=== PATIENT | female | born 1965 | race Caucasian/White ===

== ENCOUNTER → 2016-10-10 | Outpatient (CLI) | payer MEDICARE, OTHER ==
--- NOTE | 2016-10-10 22:21 | MR ---
EXAMINATION TYPE: MR brain/lspine wo con DATE OF EXAM: 10/10/2016 6:00 PM COMPARISON: 04/04/2014 HISTORY: LBP, stroke, diff with speech, rt arm weakness CONTRAST: 0 mL intravenous MultiHance. TECHNIQUE: Multiplanar, multisequence images of the lumbar spine were acquired. FINDINGS: L5-S1: Moderately large left paracentral disc herniation is present. There is displacement and compr ession of the left S1 exiting nerve root. Correlate with radicular symptoms. No AP spinal canal steno sis is present. Findings are stable from 04/04/2014. Neural foramen are patent.. There is narrowing of the disc height at L5-S1. L4-L5: Broad-based disc bulge is present with anterior thecal sac compression. No AP spinal canal pardeep nosis is present. Mild facet hypertrophy is present. There is mild right foraminal narrowing. Left ne ural foramen is patent. Disc desiccation and narrowing of the disc height is present. Ligamentum flav um laxity is present. L3-L4: No significant disc bulge or disc herniation. No spinal canal stenosis. No foraminal stenosi s. Mild facet hypertrophy is present.. L2-L3: No significant disc bulge or disc herniation. No spinal canal stenosis. No foraminal stenosi s. Neural foramen are patent.. L1-L2: No significant disc bulge or disc herniation. No spinal canal stenosis. No foraminal stenosi s. Neural foramen are patent.. T12-L1: No significant disc bulge or disc herniation. No spinal canal stenosis. No foraminal stenos is. Neural foramen are patent.. IMPRESSION: 1. Left paracentral moderate to large disc herniation L5-S1 displacing the exiting left S1 nerve root . Correlate with radicular symptoms. This is stable from 04/04/2014. 2. Broad-based disc bulge L5 L4 L5 with anterior thecal sac compression. No spinal canal stenosis is present. 3. Loss of disc height L3-4-5 and L5-S1. Disc desiccation is present at these levels. 4. Findings appear stable from 04/04/2014. EXAMINATION TYPE: MR brain/lspine wo con DATE OF EXAM: 10/10/2016 6:00 PM COMPARISON: 08/13/2014 HISTORY: LBP, stroke, diff with speech, rt arm weakness CONTRAST: Performed utilizing 0 mL intravenous MultiHance gadolinium contrast. TECHNIQUE: Multiplanar, multiecho imaging on a 3.0 [place] magnet is performed through the brain. Stud y is performed within 24 hours of arrival to the hospital. The craniovertebral junction is normal. The pituitary is normal. Diffusion-weighted imaging is performed. No abnormal hyperintensity is present to suggest an acute i ntracranial infarct or acute ischemic change. There is atrophy within the left temporal region. Sulci are prominent. Subcortical white matter hyper intensity is present on T2 and inversion recovery weighted sequences. Some white matter changes may b e within the left cerebral peduncle. There are a few scattered small subcortical white matter changes present in the periventricular region greater on the left. Some cortical hyperintensities on inversi on recovery weighted sequences within the watershed region. Findings can be compatible with microvasc ular ischemic changes. Findings were present previously and hasn't matured from prior study. Ventricles and sulci are prominent for the patient age, predominantly on the left side likely relate d to ex vacuo effect. IMPRESSIONS: 1. Chronic ischemic changes left temporal parietal region. No acute intracranial process evident. Fin dings are stable from 08/13/2014.
== END | disposition home or self-care (01) ==
LOC: RADMRIMAIN 16:44
PROVIDERS: ATTEND Nurse Practitioner Acute Care
DX: M51.27 Other intervertebral disc displacement, lumbosacral region (principal); I67.82 Cerebral ischemia
CPT/HCPCS: 70551; 72148

== ENCOUNTER 2017-03-14 09:57 | Emergency (ER) | payer MEDICARE, OTHER ==
[2017-03-14 10:05] VITALS: BP 147/67; PULSE 56; RESP 20; TEMP 97.5
--- NOTE | 2017-03-14 10:25 | ED ---
Lower Extremity Injury HPI - General Chief Complaint: Extremity Injury, Lower Stated Complaint: fall, foot injury Time Seen by Provider: 03/14/17 10:13 Source: patient, RN notes reviewed Mode of arrival: ambulatory Limitations: physical limitation - History of Present Illness Initial Comments: 51-year-old female presents emergency Department chief complaint right foot ankle pain. Patient states that she is to his never leg states that her foot was asleep states that she stood up and fell. She states this happened on Monday and complains of no pain in her right foot and ankle. She states is swollen and states that it's not feeling better at this time. She is not seeing Fadi from his prior injury and has had no prior fractures or sprains. - Related Data Home Medications Medication Instructions Recorded Confirmed Gabapentin [Neurontin] 800 mg PO TID 12/17/13 03/14/17 HYDROcodone/APAP 7.5-325MG [[place] 1 tab PO BID PRN 12/17/13 03/14/17 7.5-325] INSULIN LISPRO (humaLOG) [humaLOG 4 units SQ AC-SUPPER 12/17/13 03/14/17 (formulary)] Insulin Detemir [Levemir] 15 unit SQ BID 12/17/13 03/14/17 Lisinopril [Zestril] 5 mg PO BID 12/17/13 03/14/17 Latanoprost Ophth [Xalatan 0.005%] 1 drops BOTH EYES HS 08/11/14 03/14/17 Sertraline [Zoloft] 100 mg PO DAILY 07/31/15 03/14/17 metFORMIN HCL 1,000 mg PO BID 07/31/15 03/14/17 Atorvastatin Calcium [Lipitor] 80 mg PO HS 03/14/17 03/14/17 Omeprazole 20 mg PO DAILY 03/14/17 03/14/17 Zolpidem [Ambien] 5 mg PO HS 03/14/17 03/14/17 Previous Rx's Medication Instructions Recorded Aspirin 325 mg PO DAILY #30 tab 08/03/15 Clopidogrel [Plavix] 75 mg PO DAILY #30 tab 08/03/15 Metoprolol Tartrate [Lopressor] 25 mg PO BID #60 tab 08/03/15 Allergies Allergy/AdvReac Type Severity Reaction Status Date / Time No Known Allergies Allergy Verified 03/14/17 10:36 Review of Systems ROS Statement: Those systems with pertinent positive or pertinent negative responses have been documented in the HPI. ROS Other: All systems not noted in ROS Statement are negative. Past Medical History Past Medical History: Coronary Artery Disease (CAD), Chest Pain / Angina, CVA/ TIA, Diabetes Mellitus, Eye Disorder, GERD/Reflux, Hyperlipidemia, Hypertension , Myocardial Infarction ([place]) Additional Past Medical History / Comment(s): , fibroelastoma of the aortic valve, DDD, GLAUCOMA bilaterally ,POVD,NEUROPATHY bilateral legs and feet. Last Myocardial Infarction Date:: 2011 History of Any Multi-Drug Resistant Organisms: None Reported Past Surgical History: Cholecystectomy, Heart Catheterization With Stent, Tubal Ligation Additional Past Surgical History / Comment(s): PTCA with stent LAD 11/20/11, NERI , ovarian cyst Past Anesthesia/Blood Transfusion Reactions: No Reported Reaction Date of Last Stent Placement:: 11-20-2011 Past Psychological History: Anxiety, Depression Smoking Status: Current every day smoker Past Alcohol Use History: None Reported Past Drug Use History: Marijuana - Past Family History Father History Unknown: Yes Family Medical History: Unable to Obtain Mother Family Medical History: Diabetes Mellitus, Myocardial Infarction ([place]) Additional Family Medical History / Comment(s): Mother at age 55 yrs of unknown cause. General Exam Limitations: physical limitation General appearance: alert, in no apparent distress Respiratory exam: Present: normal lung sounds bilaterally. Absent: respiratory distress, wheezes, rales, rhonchi, stridor Cardiovascular Exam: Present: regular rate, normal rhythm, normal heart sounds. Absent: systolic murmur, diastolic murmur, rubs, gallop, clicks Extremities exam: Present: other (Right ankle dorsal lateral malleolus, mild swelling, mild swelling of the right foot with tenderness lateral foot over the fourth and fifth metatarsal neurovascular intact with cap refill less than 2 seconds.) Skin exam: Present: warm, dry, intact, normal color. Absent: rash Course Vital Signs 03/14/17 10:03 Temperature 97.5 F L Pulse Rate 56 L Respiratory 20 Rate Blood Pressure 147/67 O2 Sat by Pulse 99 Oximetry Medical Decision Making - Medical Decision Making 51-year-old female presented for right foot and ankle pain. Patient has a right ankle foot sprain. Patient will be Leandro wrap and discharged. Facial follow-up orthopedics as needed. Disposition Clinical Impression: Right ankle sprain Disposition: HOME SELF-CARE Condition: Stable Instructions: Ankle Sprain (ED) Additional Instructions: Please return to the Emergency Department if symptoms worsen or any other concerns. Referrals: Daniel Bailey MD [Primary Care Provider] - 1-2 days Rai Jones DO [Doctor of Osteopathic Medicine] - 1-2 days Time of Disposition: 11:04
--- NOTE | 2017-03-14 10:53 | XR ---
Right foot and right ankle HISTORY: Trauma and pain 4 days prior 3 views of the right foot correlated to 3 views of the right ankle same date Bone mineralization, joint spaces and alignment are maintained with the exception of osteoarthritic c hange at the first metatarsophalangeal joint. There is a plantar calcaneal spur. Soft tissue swelling is noted. IMPRESSION: No fracture or dislocation is evident
== END 2017-03-14 11:08 | disposition home or self-care (01) ==
LOC: EC 09:57
DX: S93.401A Sprain of unspecified ligament of right ankle, initial encounter (principal); S93.601A Unspecified sprain of right foot, initial encounter; I25.10 Atherosclerotic heart disease of native coronary artery without angina pectoris; K21.9 Gastro-esophageal reflux disease without esophagitis; E78.5 Hyperlipidemia, unspecified; I25.2 Old myocardial infarction; I10 Essential (primary) hypertension; E11.40 Type 2 diabetes mellitus with diabetic neuropathy, unspecified; H40.9 Unspecified glaucoma; F41.9 Anxiety disorder, unspecified; F32.9 Major depressive disorder, single episode, unspecified; F17.200 Nicotine dependence, unspecified, uncomplicated; Z95.5 Presence of coronary angioplasty implant and graft; Z79.4 Long term (current) use of insulin; Z79.84 Long term (current) use of oral hypoglycemic drugs; Z79.899 Other long term (current) drug therapy; W19.XXXA Unspecified fall, initial encounter
CPT/HCPCS: 99283

== ENCOUNTER → 2017-09-04 | Outpatient (CLI) | payer MEDICARE, OTHER ==
[2017-09-04 13:52] LABS: Basophils # (A) 0.1 k/uL (0-0.2); Basophils % (A) 1 %; Eosinophils # (A) 0.2 k/uL (0-0.7); Eosinophils % (A) 3 %; HCT 36.9 % (34.0-46.0); HGB 12.1 gm/dL (11.4-16.0); Lymphocytes # (A) 2.3 k/uL (1.0-4.8); Lymphocytes % (A) 24 %; MCH 31.7 pg (25.0-35.0); MCHC 32.8 g/dL (31.0-37.0); MCV 96.5 fL (80.0-100.0); Mean Platelet Volume 7.8; Monocytes # (A) 0.5 k/uL (0-1.0); Monocytes % (A) 5 %; Neutrophils # (A) 6.3 k/uL (1.3-7.7); Neutrophils % (A) 66 %; Platelet Count 288 k/uL (150-450); RBC 3.83 m/uL (3.80-5.40); RDW 14.4 % (11.5-15.5); WBC 9.7 k/uL (3.8-10.6)
[2017-09-04 13:57] LABS: Appearance,Urine Clear (Clear); Bilirubin,Urine Negative (Negative); Blood,Urine Negative (Negative); Color,Urine Yellow; Glucose,Urine (UA) Negative (Negative); Ketones,Urine Negative (Negative); Leukocyte Esterase,Urine Negative (Negative); Nitrite,Urine Negative (Negative); PH, Urine 5.5 (5.0-8.0); Protein,Urine Negative (Negative); Urobilinogen,Urine <2.0 mg/dL (<2.0)
[2017-09-04 14:02] LABS: Anion Gap 11 mmol/L; Blood Urea Nitrogen 10 mg/dL (7-17); Carbon Dioxide 28 mmol/L (22-30); Chloride 100 mmol/L (98-107); Glucose 63 mg/dL (74-99); Potassium 4.9 mmol/L (3.5-5.1); Sodium 139 mmol/L (137-145)
== END | disposition home or self-care (01) ==
LOC: LABPAT 13:02
PROVIDERS: ATTEND Surgery
DX: Z01.812 Encounter for preprocedural laboratory examination (principal); I73.9 Peripheral vascular disease, unspecified
CPT/HCPCS: 36415; 80051; 81003; 82565; 82947; 84520; 85025

== ENCOUNTER 2017-09-06 05:42 | Inpatient (IN) | payer MEDICARE, OTHER ==
[2017-09-05 11:01] VITALS: BMI 26.5
[~2017-09-06 05:42] MED LIST: ceFAZolin IN SWFI 2 GM/20 ML SYRINGE IVP ONE
[2017-09-06] MEDS ORDERED: DEXAMETHASONE SOD PHOSPHATE 10 MG/ML 1 ML VIAL IV ONE (05:50)
[2017-09-06] MEDS ORDERED: LACTATED RINGERS 1,000 ML IV SCH (05:50)
[2017-09-06] MEDS ORDERED: MIDAZOLAM 2 MG/2 ML VIAL IV PRN (05:50)
[2017-09-06] MEDS ORDERED: ONDANSETRON 4 MG/2 ML VIAL IVP ONE (05:50)
[2017-09-06] MEDS ORDERED: HYDROmorphone 0.5 MG/0.5 ML SYRINGE IVP PRN (05:50)
[2017-09-06] MEDS ORDERED: MORPHINE SULFATE 4 MG/ML SYRINGE IVP PRN ×2 (06:13→16:42)
[2017-09-06 06:30] LABS: Glucose,Whole Blood 122 mg/dL (75-99)
[2017-09-06] MEDS ORDERED: LIDOCAINE 1% 20 ML VIAL (10MG/ML) FOR IV START INTRADERMA ONE (06:30)
[2017-09-06] MEDS ORDERED: ePHEDrine SULFATE/0.9% NACL/PF 50 MG/5 ML SYRINGE IV ONE (07:28)
[2017-09-06] MEDS ORDERED: MIDAZOLAM 2 MG/2 ML VIAL ONE (07:28)
[2017-09-06] MEDS ORDERED: GLYCOPYRROLATE 0.2 MG/ML 2 ML VIAL ONE (07:28)
[2017-09-06] MEDS ORDERED: fentaNYL (PF) 50 MCG/ML 2 ML AMP ONE (07:28)
[2017-09-06] MEDS ORDERED: HEPARIN SODIUM,PORCINE 10,000 UNIT/ML 1 ML VIAL ONE ×2 (07:28)
[2017-09-06] MEDS ORDERED: PHENYLEPHRINE-0.9% NACL SYG 1 MG/10 ML SYRINGE ONE (07:28)
[2017-09-06] MEDS ORDERED: ROCURONIUM BROMIDE 10 MG/ML 10 ML VIAL IV ONE (07:28)
[2017-09-06] MEDS ORDERED: SODIUM CHLORIDE 0.9% IRRIG 1,000 ML BTL IRRIGATION ONE (07:28)
[2017-09-06] MEDS ORDERED: INSULIN REGULAR 100 UNIT/ML VIAL ONE (07:28)
[2017-09-06] MEDS ORDERED: ETOMIDATE 2 MG/ML 10 ML VIAL ONE (07:28)
[2017-09-06] MEDS ORDERED: HYDROmorphone (PF) 1 MG/ML ONE (07:28)
[2017-09-06] MEDS ORDERED: LABETALOL 5 MG/ML VIAL MDV ONE (07:28)
[2017-09-06] MEDS ORDERED: ceFAZolin 1,000 MG VIAL ONE (07:28)
[2017-09-06] MEDS ORDERED: NEOSTIGMINE 1 MG/ML 10 ML VIAL ONE (07:28)
[2017-09-06] MEDS ORDERED: PROTAMINE SULFATE 10 MG/ML 5 ML VIAL IV ONE (07:28)
[2017-09-06] MEDS ORDERED: LIDOCAINE 1% INJ 10MG/ML (20 ML MDV) ONE (07:28)
[2017-09-06] MEDS ORDERED: LACTATED RINGERS 1,000 ML IV ONE ×5 (08:36→12:25)
[2017-09-06] MEDS ORDERED: SODIUM CHLORIDE 0.9% 1,000 ML IV ONE (08:36)
[2017-09-06] MEDS ORDERED: SODIUM CHLORIDE 0.9% 500 ML with HEPARIN SODIUM,PORCINE 5,000 UNIT IV ONE ×6 (08:43)
[2017-09-06] MEDS ORDERED: THROMBIN (BOVINE) 5,000 UNIT VIAL TOPICAL ONE (08:43)
[2017-09-06] MEDS ORDERED: GELATIN SPONGE,ABSORB (LARGE) 1 EACH SPONGE MISCELLANE ONE (08:44)
[2017-09-06 10:57] LABS: Glucose,Whole Blood 306 mg/dL (75-99)
[2017-09-06 10:57] LABS: Glucose,Whole Blood 298 mg/dL (75-99)
[2017-09-06] MEDS ORDERED: SODIUM CHLORIDE 0.9% 100 ML with ceFAZolin 2,000 MG IV ONE ×2 (11:45)
[2017-09-06] MEDS ORDERED: ZOLPIDEM 5 MG TAB PO PRN (12:12)
[2017-09-06] MEDS ORDERED: MAG HYDROX/AL HYDROX/SIMETH 30 ML CUP PO PRN (12:22)
[2017-09-06] MEDS ORDERED: HYDROcodone/APAP 5-325MG 1 EACH TAB PO PRN ×2 (12:22)
[2017-09-06] MEDS ORDERED: ONDANSETRON 4 MG/2 ML VIAL IVP PRN (12:22)
--- NOTE | 2017-09-06 12:22 | P.OP ---
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 Aorto-bifemoral artery bypass with Gortex graft 2. Right common femoral artery endarterectomy Implants: Gortex 16x8mm bifurcated graft Anesthesia: R[place] Surgeon: Abdulkadir Conrad Speeder Hand #1: Marco A South Estimated Blood Loss (ml): 350 Pathology: other (right femoral plaque) Disposition: PACU Indications for Procedure: 51-year-old female with history of multiple comorbidities including coronary disease, cerebrovascular accidents and TIAs presented to the office with complaints of bilateral lower extremity pain ongoing for many years. She is well-known to the [facility] system and has had multiple interventions for her cardiac disease. She has had a known aortic occlusion for approximately 6 years but has had serious issues with her comorbidities as well as tobacco abuse. She has quit smoking over 1 year and wanted her aorta fixed. She recently had a angiogram that showed aortic occlusion just distal to the renal arteries with reconstitution to the femoral arteries. She presents today for aortobifem bypass. Operative Findings: Aortic thrombus and right calcified common femoral artery with dense plaque Description of Procedure: After an informed consent was obtained the patient all risks benefits, patient prescribed patient is brought to the upper saline in a supine position. Area of the abdomen down to the toes was prepped and draped in the usual sterile fashion after appropriate anesthetic was performed per the anesthesiologist. Timeout was performed a normal fashion in a boxer administered prior to incision. A midline abdominal incision was created with a 10 blade scalpel and dissection was carried down to the abdominal fascia. Fascia was incised and the abdomen was entered in normal fashion. Small bowel was then mobilized Omni retractor was placed to allow for visualization of the retroperitoneum. Retroperitoneal was then accessed with a electrocautery dissection was carried down to the abdominal aorta. The aorta was of then dissected free proximally to the renal vein and distally to the bifurcation of the iliacs. The aorta was densely calcified with mild plaque. There was a soft area noted at the renal vein just below the renal arteries. Circumferential dissection was then performed at this spot. Attention was then placed to the bilateral femoral incisions. Dr. Horta dissected the left common femoral artery as I dissected the right femoral artery. Bilateral femoral arteries were dissected free in a circumferential manner. Proximal distal control was obtained with vessel loops of the common femoral, superficial femoral, profunda bilaterally. Tunnels were then created from the abdomen to the groin and umbilical tape was placed. Patient was administered 7000 units of heparin and followed with serial CTs. Once allowed to circulate attention was placed to the abdominal aorta. Proximal control was then obtained with a vascular clamp arteriotomy was then performed to the level by scalpel. Upon entrance into the abdominal aorta there is large dense amount of plaque as well as thrombus encountered. This was removed from the area of concern for anastomosis. The aorta was then flushed to allow for any debris to be removed all debris was removed from the proximal aorta at the area of the renal arteries. A 16 x 8 mm [place]-Mau bifurcated graft was then chosen to be placed. A proximal anastomosis to the aorta was then performed a normal fashion after spatulation of the graft. This was performed with 4-0 Prolene suture in a running fashion. Once I concluded proximal control was released revealing good pulsatile blood flow throughout the graft. The graft was then tunneled normal fashion to the bilateral groins. The graft was then spatulated in normal fashion after arteriotomy was performed and bilateral common femoral arteries. Dr. Horta perform the anastomosis on the left femoral artery while I performed the anastomosis on the right femoral artery. Of note on the right common femoral artery there was a dense plaque in need of endarterectomy. Endarterectomy was performed on the right femoral artery in normal fashion with plaque. Sent off for pathology. Proximal and distal control was released revealing good backbleeding as well as forward bleeding from the femoral superficial femoral and profundus. Anastomosis was then performed in a running fashion with 5-0 Prolene suture in a running fashion to both femoral arteries. Prior to last sutures being placed the graft was allowed to forward bleed to remove all debris. Backbleeding was then allowed by the profunda and the superficial femoral artery with good backbleeding noted. A suture was then secured and all control was released revealing good pulsatile blood flow in the profunda and superficial femoral arteries bilaterally. The area was then copiously irrigated. Hemostasis was assured with Gelfoam and thrombin as well as patient was administered protamine reversal of the heparin. Once incision sites are dry the incisions were then closed in a multilayer fashion. Attention was then placed back to the abdomen where the retroperitoneum was closed with 2-0 Vicryl suture in a running fashion after hemostasis was ensured. The abdomen was then copiously irrigated with antibiotics solution. Was then suctioned dry. The fascia was then closed with looped 1-0 PDS suture in a running fashion. Skin was then cleansed and closed with stefania. Skin was then cleansed and all 3 areas and dressed with a skin wound VAC for the midline incision and 4 x 4's and OpSite sent for the groins. Patient tolerated procedure well had palpable DP and PT pulses at the conclusion of the procedure.
[2017-09-06 12:42] LABS: Glucose,Whole Blood 224 mg/dL (75-99)
[2017-09-06] MEDS ORDERED: METOPROLOL TARTRATE 5 MG/5 ML VIAL IVP ONE (13:23)
[2017-09-06 13:54] LABS: Glucose,Whole Blood 235 mg/dL (75-99)
[2017-09-06] MEDS: SODIUM CHLORIDE 0.9% 1,000 ML IV SCH (14:15)
[2017-09-06] MEDS: HEPARIN SODIUM,PORCINE 5,000 UNIT/ML 1 ML VIAL SQ SCH ×2 (15:37→23:33)
[2017-09-06] MEDS: GABAPENTIN 400 MG CAP PO SCH ×2 (15:37→20:30)
[2017-09-06] MEDS: ceFAZolin IN SWFI 2 GM/20 ML SYRINGE IVP SCH ×2 (15:38→23:37)
[2017-09-06 17:10] LABS: Glucose,Whole Blood 264 mg/dL (75-99)
[2017-09-06] MEDS ORDERED: INSULIN ASPART 100 UNIT/ML 1 ML 10 ML VIAL SQ SCH (17:30)
[2017-09-06] MEDS: LISINOPRIL 5 MG TAB PO SCH (20:30)
[2017-09-06] MEDS: LATANOPROST 0.005% OPHTH DROPS 2.5 ML BTL BOTH EYES SCH (20:30)
[2017-09-06] MEDS: ATORVASTATIN 80 MG TAB PO SCH (20:30)
[2017-09-06] MEDS: METOPROLOL TARTRATE 25 MG TAB PO SCH (20:30)
[2017-09-06] MEDS: INSULIN DETEMIR 100 UNIT/ML 10 ML VIAL SQ SCH (20:31)
[2017-09-06 23:37] LABS: Glucose,Whole Blood 170 mg/dL (75-99)
[2017-09-07] MEDS: SODIUM CHLORIDE 0.9% 1,000 ML IV SCH ×2 (02:41→20:57)
[2017-09-07 05:10] LABS: Basophils % (A) 0 %; Eosinophils % (A) 0 %; HCT 32.5 % (34.0-46.0); Lymphocytes # (A) 1.2 k/uL (1.0-4.8); Lymphocytes % (A) 9 %; MCH 31.9 pg (25.0-35.0); MCV 93.8 fL (80.0-100.0); Mean Platelet Volume 8.1; Monocytes # (A) 0.8 k/uL (0-1.0); Monocytes % (A) 6 %; Neutrophils # (A) 11.5 k/uL (1.3-7.7); Neutrophils % (A) 84 %; Platelet Count 267 k/uL (150-450); RBC 3.46 m/uL (3.80-5.40); RDW 14.6 % (11.5-15.5); WBC 13.7 k/uL (3.8-10.6)
[2017-09-07 05:15] LABS: Anion Gap 7 mmol/L; Blood Urea Nitrogen 12 mg/dL (7-17); Calcium 8.2 mg/dL (8.4-10.2); Carbon Dioxide 24 mmol/L (22-30); Chloride 104 mmol/L (98-107); Glucose 144 mg/dL (74-99); Phosphorus 3.3 mg/dL (2.5-4.5); Potassium 4.1 mmol/L (3.5-5.1); Sodium 135 mmol/L (137-145)
[2017-09-07] MEDS: MAGNESIUM SULFATE-D5W PMX 1 GM in DEXTROSE/WATER 1 100ML.BAG IVPB SCH ×3 (09:25→12:04)
[2017-09-07] MEDS: ASPIRIN 325 MG TAB PO SCH (09:32)
[2017-09-07] MEDS: CLOPIDOGREL 75 MG TAB PO SCH ×2 (09:32→09:33)
[2017-09-07] MEDS: PANTOPRAZOLE 40 MG TABLET PO SCH (09:32)
[2017-09-07] MEDS: HEPARIN SODIUM,PORCINE 5,000 UNIT/ML 1 ML VIAL SQ SCH ×3 (09:32→23:16)
[2017-09-07] MEDS: GABAPENTIN 400 MG CAP PO SCH ×3 (09:33→20:56)
[2017-09-07] MEDS: DOCUSATE 100 MG CAP PO SCH (09:33)
[2017-09-07] MEDS: INSULIN DETEMIR 100 UNIT/ML 10 ML VIAL SQ SCH ×2 (09:41→21:50)
[2017-09-07] MEDS: LISINOPRIL 10 MG TAB PO SCH (09:42)
[2017-09-07] MEDS: SERTRALINE 100 MG TAB PO SCH (09:43)
[2017-09-07] MEDS: METOPROLOL TARTRATE 25 MG TAB PO SCH ×2 (09:43→20:54)
[2017-09-07] MEDS: INSULIN ASPART 100 UNIT/ML 1 ML 10 ML VIAL SQ SCH ×4 (09:45→20:55)
[2017-09-07 09:49] LABS: ALT 30 U/L (9-52); AST 27 U/L (14-36); Albumin 2.6 g/dL (3.5-5.0); Alkaline Phosphatase 62 U/L (38-126); Total Bilirubin 0.2 mg/dL (0.2-1.3); Total Protein 4.6 g/dL (6.3-8.2)
[2017-09-07] MEDS ORDERED: INSULIN NPH 300 UNIT/3 ML VIAL SQ ONE (12:25)
[2017-09-07 12:30] LABS: Glucose,Whole Blood 179 mg/dL (75-99)
[2017-09-07 12:51] LABS: Hemoglobin A1C 5.1 % (4.0-6.0)
--- NOTE | 2017-09-07 14:10 | P.PN ---
Subjective Progress Note Date: 09/07/17 Principal diagnosis: Aorto iliac occlusion with rest pain rather for classification 4, hypertension, hyperlipidemia, diabetes mellitus type 2, history of myocardial infarction, history of coronary artery disease with previous stent placement to her LAD, history of TIA with residual right-sided weakness, history of depression, remote history of smoking and family history of coronary artery disease less than 60 years of age. POD #1 aortobifemoral artery bypass with [place]-Mau graft, right common femoral artery endarterectomy. The patient is lying in bed with her legs elevated higher than local of her heart. She is in no acute distress. She rates her pain currently at 3 out of 10 on the pain scale. She has positive palpable pulses to her posterior tibials and dorsalis pedis pulses bilaterally. Her oxygen saturations are 96% on room air. She is alert and oriented 3. Objective - Vital Signs Vital signs: Vital Signs Temp 98.6 F 09/07/17 12:00 Pulse 80 09/07/17 13:00 Resp 23 09/07/17 13:00 BP 136/70 09/07/17 13:00 Pulse Ox 92 L 09/07/17 13:00 Intake & Output 09/06/17 09/07/17 09/07/17 18:59 06:59 18:59 Intake Total 3942 1536 906 Output Total 2245 555 40 Balance 1697 981 866 Weight 68.4 kg 68.4 kg Intake: IV 3942 936 846 Magnesium Sulfate-D5w Pmx 300 1 gm In Dextrose/Water 1 100ml.bag @ 100 mls/hr IVPB Q1H PAULA Rx#: [id number] Pressure Bag - Sodium 15 36 21 Chloride 0.9% Sodium Chloride 0.9% 1, 375 900 525 000 ml @ 75 mls/hr IV . [id number] PAULA Rx#:[id number] Oral 600 Other 60 Output: Gastric Drainage 100 Urine 1795 455 40 Estimated Blood Loss 450 Other: Voiding Method Indwelling Catheter Indwelling Catheter Indwelling Catheter ABP, PAP, CO, CI - Last Documented Arterial Blood Pressure 167/62 - Constitutional General appearance: Present: cooperative, no acute distress, thin - EENT ENT: Present: hearing grossly normal - Neck Details: Neck is supple, no JVD or lymphadenopathy. - Respiratory Details: Lung sounds are essentially clear throughout, diminished bilateral bases. Respirations are symmetrical and nonlabored. Oxygen saturation are 96% on room air. - Cardiovascular Details: Regular rhythm and rate. S1 and S2 present, negative for S3, gallop or murmur. Bedside telemetry showing normal sinus rhythm. No edema present. Palpable peripheral pulses to her bilateral posterior tibial and dorsalis pedis pulses. Bilateral feet warm to touch. - Gastrointestinal Gastrointestinal Comment(s): Abdomen is soft, with incisional tenderness and nondistended. Hypoactive bowel sounds present to all 4 abdominal quadrants. NG tube in place evacuating green bile colored drainage. 100 mL output in the last 8 hours. - Genitourinary Genitourinary Comment(s): Urine output adequate, clear yellow urine. 290 mL output in the last 8 hours. - Integumentary Integumentary Comment(s): Skin is warm, dry and pink. Midline abdominal incision with VAC dressing clean and dry. No drainage present. Bilateral groin incisions clean dry and well approximated. No drainage present. - Neurologic Neurologic Comment(s): Residual right-sided weakness from previous TIA. - Musculoskeletal Musculoskeletal: Present: generalized weakness, right sided weakness - Psychiatric Psychiatric: Present: A&O x's 3, appropriate affect, intact judgment & insight - Allied health notes Allied health notes reviewed: nursing - Labs CBC & Chem 7: 09/07/17 04:45 09/07/17 04:45 Labs: Abnormal Lab Results - Last 24 Hours (Table) 09/06/17 09/06/17 09/07/17 Range/Units 17:08 23:34 04:45 WBC 13.7 H (3.8-10.6) k/uL RBC 3.46 L (3.80-5.40) m/uL Hgb 11.0 L (11.4-16.0) gm/dL Hct 32.5 L (34.0-46.0) % Neutrophils # 11.5 H (1.3-7.7) k/uL Sodium (137-145) mmol/L Glucose (74-99) mg/dL POC Glucose (mg/dL) 264 H 170 H (75-99) mg/dL Calcium (8.4-10.2) mg/dL Magnesium (1.6-2.3) mg/dL Total Protein (6.3-8.2) g/dL Albumin (3.5-5.0) g/dL 09/07/17 09/07/17 Range/Units 04:45 12:26 WBC (3.8-10.6) k/uL RBC (3.80-5.40) m/uL Hgb (11.4-16.0) gm/dL Hct (34.0-46.0) % Neutrophils # (1.3-7.7) k/uL Sodium 135 L (137-145) mmol/L Glucose 144 H (74-99) mg/dL POC Glucose (mg/dL) 179 H (75-99) mg/dL Calcium 8.2 L (8.4-10.2) mg/dL Magnesium 1.2 L (1.6-2.3) mg/dL Total Protein 4.6 L (6.3-8.2) g/dL Albumin 2.6 L (3.5-5.0) g/dL Assessment and Plan (1) History of cerebrovascular accident Current Visit: Yes Status: Acute Code(s): Z86.73 - PRSNL HX OF TIA (TIA), AND CEREB INFRC W/O RESID DEFICITS SNOMED Code(s): 492840465 (2) History of smoking Current Visit: Yes Status: Acute Code(s): Z87.891 - PERSONAL HISTORY OF NICOTINE DEPENDENCE SNOMED Code(s): 15876763342167007 (3) Aortoiliac occlusive disease Current Visit: Yes Status: Acute Code(s): I74.09 - OTHER ARTERIAL EMBOLISM AND THROMBOSIS OF ABDOMINAL AORTA SNOMED Code(s): 42698562713372382 (4) HTN (hypertension) Current Visit: No Status: Acute Code(s): I10 - ESSENTIAL (PRIMARY) HYPERTENSION SNOMED Code(s): 88064078 (5) Hyperlipemia Current Visit: No Status: Acute Code(s): E78.5 - HYPERLIPIDEMIA, UNSPECIFIED SNOMED Code(s): 31159304 (6) Nicotine dependence Current Visit: No Status: Acute Code(s): F17.200 - NICOTINE DEPENDENCE, UNSPECIFIED, UNCOMPLICATED SNOMED Code(s): 18697273 (7) PVD (peripheral vascular disease) Current Visit: No Status: Acute Code(s): I73.9 - PERIPHERAL VASCULAR DISEASE , UNSPECIFIED SNOMED Code(s): 392317760 (8) Presence of stent in LAD coronary artery Current Visit: No Status: Acute Code(s): Z95.5 - PRESENCE OF CORONARY ANGIOPLASTY IMPLANT AND GRAFT SNOMED Code(s): 945942319541161 (9) Right sided weakness Current Visit: No Status: Acute Code(s): M62.81 - MUSCLE WEAKNESS ( GENERALIZED) SNOMED Code(s): 394378585 Plan: 1. Pain control per when necessary orders. 2. Encourage use of her incentive spirometry every hour while awake. 3. Diabetic management per primary care recommendations. 4. Continue NG tube to low intermittent wall suction. 5. Maintain wound VAC per Court orders. 6. More recommendations to follow as patient progresses in her care. Time with Patient: Greater than 30
[2017-09-07 18:23] LABS: Glucose,Whole Blood 124 mg/dL (75-99)
[2017-09-07 20:30] LABS: Glucose,Whole Blood 109 mg/dL (75-99)
[2017-09-07] MEDS: LISINOPRIL 5 MG TAB PO SCH (20:55)
[2017-09-07] MEDS: ATORVASTATIN 80 MG TAB PO SCH (20:55)
[2017-09-07] MEDS: LATANOPROST 0.005% OPHTH DROPS 2.5 ML BTL BOTH EYES SCH (20:56)
[2017-09-07] MEDS ORDERED: INSULIN DETEMIR 100 UNIT/ML 10 ML VIAL SQ SCH (21:00)
--- NOTE | 2017-09-07 21:04 | CONS ---
CONSULTATION DATE OF CONSULTATION: 09/07/2017 REASON FOR CONSULTATION: Medical management requested by Dr. Conrad. CONSULTATION: This is a pleasant 51-year-old patient of my partner, Dr. Bailey. Chronic stable medical conditions include hypertension, hyperlipidemia, diabetes, GERD, depression, coronary artery disease with stent to the LAD, fibroelastoma of the AV outflow tract. The patient stopped smoking about 2 years ago. She is status post aortofemoral bypass and right common femoral artery endarterectomy. Patient is n.p.o. this morning, getting IV fluids in the ICU. The patient was not intubated. Pain is controlled. REVIEW OF SYSTEMS: CONSTITUTIONAL: None. HEENT: None. RESPIRATORY: None. CARDIOVASCULAR: None. GASTROINTESTINAL: None. GENITOURINARY: Serrano catheter. DERMATOLOGICAL: None. HEMATOLOGICAL: None. LYMPHATICS: None. PSYCHIATRY: Depression, controlled. NEUROLOGICAL: Chronic weakness in the right arm from stroke. PAST MEDICAL HISTORY: 1. Right arm weakness from an old stroke. 2. Hypertension. 3. Hyperlipidemia. 4. Diabetes. 5. GERD. 6. Depression. 7. Fibroelastoma of aortic valve outflow tract. 8. Coronary artery disease with stent to the LAD. PAST SURGICAL HISTORY: 1. Cholecystectomy. 2. Cardiac cath with stent. 3. Tubal ligation. 4. Stent in 2011. 5. Ovarian cyst. 6. Aortogram with runoff in 2015. PSYCH HISTORY: Anxiety, depression. SOCIAL HISTORY: Lives with her daughter. Uses a cane to ambulate. Patient has smoked for close to 32 years, stopped about 2 years ago. Smoked a pack a day. Does marijuana 2 or 3 joints a day. FAMILY HISTORY: Mother at the age of 55, cause unknown. HOME MEDICATIONS: 1. Ambien 5 mg at bedtime p.r.n. 2. Zoloft 100 mg p.o. daily. 3. Lopressor 25 p.o. b.i.d. 4. Zestril 10 mg in the morning, 5 mg in the evening. 5. Xalatan 0.005% one drop to both eyes at bedtime. 6. Insulin Lantus 15 units subcutaneously b.i.d. 7. Insulin Lispro 4 units subcutaneously before supper. 8. [place] 7.5 one tablet p.o. b.i.d. p.r.n. 9. Neurontin 800 mg p.o. t.i.d. 10.Plavix 75 mg p.o. daily. 11.Lipitor 80 mg at bedtime. 12.Aspirin 325 p.o. daily. ALLERGIES: NONE. PHYSICAL EXAMINATION: Temperature 98.6, pulse 74, respiration 20, blood pressure 136/71, pulse ox 94% on room air. GENERAL APPEARANCE: Average build. Sitting up, comfortable. EYES: Pupils equal. Conjunctivae normal. HEENT: External appearance of nose and ears normal. Oral cavity normal. NECK: JVD not raised. Mass not palpable. RESPIRATORY: Effort normal. LUNGS: Fair air entry. CARDIOVASCULAR: First and second sounds normal. No edema. ABDOMEN: Soft, nontender. Liver and spleen not palpable. LYMPHATIC: No lymph node palpable in neck or axillae. PSYCHIATRY: Alert and orient x3. Mood and affect normal. NEUROLOGICAL: Pupils equal. Cranial nerves grossly intact. Right arm weakness. DERMATOLOGICAL: Patient has a dressing on the abdominal wall. INVESTIGATIONS: White count 13.7, hemoglobin 11, potassium 4.1. BUN and creatinine are normal. Accu- Cheks from last night include 170, 170, 144, 179, 124. ASSESSMENT: 1. Aortobifemoral bypass with [place]-Mau and right common femoral artery endarterectomy. 2. Chronic right arm weakness from a prior stroke. 3. Hyperlipidemia. 4. Essential hypertension. 5. Diabetes mellitus, type 2, chronically on insulin. 6. Gastroesophageal reflux disease. 7. Depression not otherwise specified. 8. 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 9. Coronary artery disease with stent to the left anterior descending coronary artery. PLAN: Home medications have been resumed. Pain control is in place. Patient did not receive this morning's dose of Levemir; hence when I saw the patient this afternoon patient will get one dose of NPH 18 units. From evening time will cut back the Levemir to 11 units twice a day. Since patient is n.p.o. will just use a sliding scale and start the scheduled NovoLog once the patient starts eating. Care was discussed the patient. Questions were answered. Thank you, Dr. Conrad. MMODL / IJN: [id number] /
[2017-09-08 04:52] LABS: Basophils % (A) 0 %; Eosinophils # (A) 0.1 k/uL (0-0.7); Eosinophils % (A) 1 %; HCT 26.6 % (34.0-46.0); Lymphocytes # (A) 1.2 k/uL (1.0-4.8); Lymphocytes % (A) 9 %; MCH 31.7 pg (25.0-35.0); MCHC 34.2 g/dL (31.0-37.0); MCV 92.5 fL (80.0-100.0); Mean Platelet Volume 7.8; Monocytes # (A) 0.7 k/uL (0-1.0); Monocytes % (A) 5 %; Neutrophils # (A) 10.5 k/uL (1.3-7.7); Neutrophils % (A) 83 %; Platelet Count 251 k/uL (150-450); RBC 2.87 m/uL (3.80-5.40); RDW 14.6 % (11.5-15.5); WBC 12.7 k/uL (3.8-10.6)
[2017-09-08 04:59] LABS: HGB 9.1 gm/dL (11.4-16.0)
[2017-09-08 05:04] LABS: Anion Gap 4 mmol/L; Blood Urea Nitrogen 10 mg/dL (7-17); Carbon Dioxide 24 mmol/L (22-30); Chloride 104 mmol/L (98-107); Glucose 86 mg/dL (74-99); Phosphorus 2.3 mg/dL (2.5-4.5); Potassium 3.6 mmol/L (3.5-5.1); Sodium 132 mmol/L (137-145)
[2017-09-08] MEDS: SODIUM CHLORIDE 0.9% 1,000 ML IV SCH ×2 (05:04→17:33)
[2017-09-08] MEDS: KETOROLAC 30 MG/ML 1 ML VIAL IVP PRN (05:29)
[2017-09-08] MEDS ORDERED: POTASSIUM BICARBONATE/CIT AC 20 MEQ TABLET.EFF NG-TUBE SCH (06:00)
[2017-09-08] MEDS: MAGNESIUM SULFATE-D5W PMX 1 GM in DEXTROSE/WATER 1 100ML.BAG IVPB SCH ×2 (06:42→08:57)
[2017-09-08] MEDS: LISINOPRIL 10 MG TAB PO SCH (07:11)
[2017-09-08] MEDS: METOPROLOL TARTRATE 25 MG TAB PO SCH ×2 (07:11→21:07)
[2017-09-08 07:54] LABS: Glucose,Whole Blood 114 mg/dL (75-99)
[2017-09-08] MEDS: INSULIN ASPART 100 UNIT/ML 1 ML 10 ML VIAL SQ SCH ×4 (08:57→21:04)
[2017-09-08] MEDS: PANTOPRAZOLE 40 MG TABLET PO SCH (08:57)
[2017-09-08] MEDS: HEPARIN SODIUM,PORCINE 5,000 UNIT/ML 1 ML VIAL SQ SCH ×3 (08:58→23:29)
[2017-09-08] MEDS: DOCUSATE 100 MG CAP PO SCH (09:08)
[2017-09-08] MEDS: GABAPENTIN 400 MG CAP PO SCH ×3 (09:08→21:08)
[2017-09-08] MEDS: SERTRALINE 100 MG TAB PO SCH (09:09)
[2017-09-08] MEDS: ASPIRIN 325 MG TAB PO SCH (09:30)
[2017-09-08] MEDS ORDERED: FUROSEMIDE 10 MG/ML 2 ML VIAL IV ONE (09:54)
--- NOTE | 2017-09-08 10:00 | P.PN ---
Progress Note - Text Progress Note Date: 09/08/17 Postop surgical note: Date 2 post aortobifemoral bypass. Patient alert oriented and without significant complaints. Patient had urinary retention requiring reinsertion of Serrano. Vital signs stable. Urine output borderline. Labs noted and are all satisfactory. Abdomen is soft with positive bowel sounds. Incision clean and dry. Palpable pedal pulses. Doing very well second day post air bifemoral bypass. Try 20 of Lasix. Increased level of activity. Try again without Serrano. DC NG tube. Consider transfer to [facility].
[2017-09-08 10:40] LABS: ALT 22 U/L (9-52); AST 24 U/L (14-36); Albumin 2.2 g/dL (3.5-5.0); Alkaline Phosphatase 56 U/L (38-126); Total Bilirubin 0.3 mg/dL (0.2-1.3); Total Protein 4.4 g/dL (6.3-8.2)
[2017-09-08] MEDS: INSULIN DETEMIR 100 UNIT/ML 10 ML VIAL SQ SCH ×2 (11:19→21:07)
--- NOTE | 2017-09-08 16:01 | PN ---
PROGRESS NOTE DATE OF SERVICE: 09/08/2017 PRESENTING COMPLAINT: Vascular surgery. INTERVAL HISTORY: Patient is status post intraabdominal vascular surgery, moved out of ICU. She is on a clear liquid diet. Did sit up and tolerate a meal. Breathing is stable. No new issues. REVIEW OF SYSTEMS: Done for constitutional, cardiovascular, GI, pulmonary; relevant findings as above. CURRENT MEDICATIONS: Reviewed. PHYSICAL EXAMINATION: Temperature 97, pulse 73, respiration 18, blood pressure 122/62, pulse ox 94% on room air. GENERAL APPEARANCE: Lying in bed, awake. EYES: Pupils equal. Conjunctivae normal. HEENT: External appearance of nose and ears normal. Oral cavity normal. NECK: JVD not raised. Mass not palpable. RESPIRATORY: Effort normal. LUNGS: Clear. CARDIOVASCULAR: First and second sounds normal. No edema. ABDOMEN: Soft, nontender. Liver and spleen not palpable. PSYCHIATRY: Alert and oriented x3. Mood and affect normal. Dressing in the left groin and the abdomen with minimal tenderness. INVESTIGATIONS: White count 12.7, hemoglobin 9.1, potassium 3.6. Accu-Cheks are noted. Albumin is 2.2. ASSESSMENT: 1. Aortobifemoral bypass with [place]-Mau and right common femoral artery endarterectomy. 2. Right arm weakness from prior stroke. 3. Hyperlipidemia. 4. Essential hypertension. 5. Diabetes mellitus, type 2, chronically on insulin. 6. Gastroesophageal reflux disease. 7. Depression not otherwise specified. 8. 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 9. Coronary artery disease with stent to the left anterior descending coronary artery. 10.Hypoalbuminemia as an acute phase reactant. PLAN: Continue current medication and treatment plan. The patient's insulin can be adjusted as diet is advanced. Care was discussed with the patient. MMODL / IJN: [id number] /
[2017-09-08 17:31] LABS: Glucose,Whole Blood 141 mg/dL (75-99)
[2017-09-08] MEDS: LISINOPRIL 5 MG TAB PO SCH (20:23)
[2017-09-08 21:04] LABS: Glucose,Whole Blood 114 mg/dL (75-99)
[2017-09-08] MEDS: ATORVASTATIN 80 MG TAB PO SCH (21:06)
[2017-09-08] MEDS: LATANOPROST 0.005% OPHTH DROPS 2.5 ML BTL BOTH EYES SCH (21:07)
[2017-09-08] MEDS ORDERED: ACETAMINOPHEN TAB 325 MG TAB PO PRN (23:34)
[2017-09-09 06:03] LABS: Glucose,Whole Blood 62 mg/dL (75-99)
[2017-09-09] MEDS: INSULIN ASPART 100 UNIT/ML 1 ML 10 ML VIAL SQ SCH ×4 (06:07→21:42)
[2017-09-09] MEDS: PANTOPRAZOLE 40 MG TABLET PO SCH (06:08)
[2017-09-09] MEDS: SODIUM CHLORIDE 0.9% 1,000 ML IV SCH ×2 (06:09→21:41)
[2017-09-09 06:47] LABS: Glucose,Whole Blood 94 mg/dL (75-99)
[2017-09-09 07:47] LABS: Basophils % (A) 0 %; Eosinophils # (A) 0.2 k/uL (0-0.7); Eosinophils % (A) 2 %; HCT 24.2 % (34.0-46.0); Lymphocytes # (A) 1.1 k/uL (1.0-4.8); Lymphocytes % (A) 11 %; MCV 93.8 fL (80.0-100.0); Mean Platelet Volume 8.1; Monocytes # (A) 0.5 k/uL (0-1.0); Monocytes % (A) 5 %; Neutrophils % (A) 81 %; Platelet Count 233 k/uL (150-450); RBC 2.58 m/uL (3.80-5.40); RDW 14.8 % (11.5-15.5); WBC 9.9 k/uL (3.8-10.6)
[2017-09-09 08:20] LABS: Anion Gap 7 mmol/L; Calcium 7.9 mg/dL (8.4-10.2); Carbon Dioxide 24 mmol/L (22-30); Chloride 108 mmol/L (98-107); Glucose 113 mg/dL (74-99); Sodium 139 mmol/L (137-145)
[2017-09-09] MEDS: HEPARIN SODIUM,PORCINE 5,000 UNIT/ML 1 ML VIAL SQ SCH ×3 (08:24→23:13)
[2017-09-09] MEDS: ASPIRIN 325 MG TAB PO SCH (08:24)
[2017-09-09] MEDS: CLOPIDOGREL 75 MG TAB PO SCH (08:24)
[2017-09-09] MEDS: DOCUSATE 100 MG CAP PO SCH (08:24)
[2017-09-09] MEDS: GABAPENTIN 400 MG CAP PO SCH ×3 (08:24→21:42)
[2017-09-09] MEDS: LISINOPRIL 10 MG TAB PO SCH (08:25)
[2017-09-09] MEDS: SERTRALINE 100 MG TAB PO SCH (08:25)
[2017-09-09] MEDS: METOPROLOL TARTRATE 25 MG TAB PO SCH ×2 (08:25→21:42)
[2017-09-09 08:26] LABS: Blood Urea Nitrogen 9 mg/dL (7-17); Potassium 4.3 mmol/L (3.5-5.1)
[2017-09-09] MEDS: KETOROLAC 30 MG/ML 1 ML VIAL IVP PRN ×2 (08:28→14:58)
[2017-09-09] MEDS: INSULIN DETEMIR 100 UNIT/ML 10 ML VIAL SQ SCH ×2 (08:29→21:42)
[2017-09-09 09:13] LABS: Crenated RBC Present
--- NOTE | 2017-09-09 09:27 | P.PN ---
Progress Note - Text Progress Note Date: 09/09/17 Surgical Postop note: Day 3 post-aortobifemoral bypass. Patient feels quite well day 3 posterior bifemoral. Still no BM. Serrano in place. Slow to ambulate. Vital signs stable. Eyes and nose okay. Labs noted. Abdomen soft and benign. Pulses palpable. Good postoperative progress. DC Serrano. Increase activity. Increase diet as tolerated.
[2017-09-09 11:20] LABS: Glucose,Whole Blood 74 mg/dL (75-99)
[2017-09-09 17:36] LABS: Glucose,Whole Blood 117 mg/dL (75-99)
[2017-09-09 21:00] LABS: Glucose,Whole Blood 140 mg/dL (75-99)
[2017-09-09] MEDS: ATORVASTATIN 80 MG TAB PO SCH (21:42)
[2017-09-09] MEDS: LATANOPROST 0.005% OPHTH DROPS 2.5 ML BTL BOTH EYES SCH (21:42)
[2017-09-09] MEDS: LISINOPRIL 5 MG TAB PO SCH (21:43)
[2017-09-10 06:08] LABS: Glucose,Whole Blood 76 mg/dL (75-99)
[2017-09-10] MEDS: INSULIN ASPART 100 UNIT/ML 1 ML 10 ML VIAL SQ SCH ×2 (06:25→11:42)
[2017-09-10] MEDS: PANTOPRAZOLE 40 MG TABLET PO SCH (06:26)
[2017-09-10 08:03] VITALS: RESP 16
[2017-09-10] MEDS: ASPIRIN 325 MG TAB PO SCH (08:12)
[2017-09-10] MEDS: CLOPIDOGREL 75 MG TAB PO SCH (08:12)
[2017-09-10] MEDS: LISINOPRIL 10 MG TAB PO SCH (08:12)
[2017-09-10] MEDS: DOCUSATE 100 MG CAP PO SCH (08:12)
[2017-09-10] MEDS: GABAPENTIN 400 MG CAP PO SCH ×2 (08:12→15:18)
[2017-09-10] MEDS: METOPROLOL TARTRATE 25 MG TAB PO SCH (08:12)
[2017-09-10] MEDS: INSULIN DETEMIR 100 UNIT/ML 10 ML VIAL SQ SCH (08:12)
[2017-09-10] MEDS: HEPARIN SODIUM,PORCINE 5,000 UNIT/ML 1 ML VIAL SQ SCH (08:13)
[2017-09-10] MEDS: SERTRALINE 100 MG TAB PO SCH (08:13)
[2017-09-10 09:11] LABS: Basophils % (A) 0 %; Eosinophils # (A) 0.2 k/uL (0-0.7); Eosinophils % (A) 3 %; HCT 21.9 % (34.0-46.0); HGB 7.5 gm/dL (11.4-16.0); Lymphocytes # (A) 1.2 k/uL (1.0-4.8); Lymphocytes % (A) 14 %; MCH 31.9 pg (25.0-35.0); MCHC 34.1 g/dL (31.0-37.0); MCV 93.7 fL (80.0-100.0); Mean Platelet Volume 8.1; Monocytes # (A) 0.4 k/uL (0-1.0); Monocytes % (A) 5 %; Neutrophils # (A) 6.2 k/uL (1.3-7.7); Neutrophils % (A) 75 %; Platelet Count 284 k/uL (150-450); RBC 2.34 m/uL (3.80-5.40); RDW 14.9 % (11.5-15.5); WBC 8.2 k/uL (3.8-10.6)
[2017-09-10 09:16] LABS: ALT 18 U/L (9-52); AST 27 U/L (14-36); Albumin 2.4 g/dL (3.5-5.0); Alkaline Phosphatase 53 U/L (38-126); Anion Gap 6 mmol/L; Blood Urea Nitrogen 5 mg/dL (7-17); Carbon Dioxide 26 mmol/L (22-30); Chloride 106 mmol/L (98-107); Glucose 131 mg/dL (74-99); Potassium 3.5 mmol/L (3.5-5.1); Sodium 138 mmol/L (137-145); Total Bilirubin 0.4 mg/dL (0.2-1.3); Total Protein 4.5 g/dL (6.3-8.2)
--- NOTE | 2017-09-10 10:19 | P.PN ---
Progress Note - Text Progress Note Date: 09/10/17 Surgical progress note: Day for post aortobifemoral bypass. Patient has no complaints. Patient has had bowel movements and is eating well. Vital signs stable. Afebrile. Abdomen soft and benign and pulses bounding. Patient is doing beautifully posterior to bifemoral bypass. Discussed incision care and activity limitations. Discharge instructions reviewed in detail. DC wound VAC.
[2017-09-10] MEDS: SODIUM CHLORIDE 0.9% 1,000 ML IV SCH (11:05)
[2017-09-10 11:16] VITALS: TEMP 98.2
[2017-09-10 11:34] LABS: Glucose,Whole Blood 78 mg/dL (75-99)
[2017-09-10 15:18] VITALS: BP 110/59; PULSE 69
--- NOTE | 2017-09-10 17:00 | P.PN ---
Subjective Progress Note Date: 09/09/17 Principal diagnosis: Javid post aortofemoral bypass graft Patient is a 51-year-old female with a known history of hypertension, hyperlipidemia and diabetes type 2 was admitted to the hospital for IV aortofemoral bypass graft due to peripheral vascular disease and claudication. 09/09/2017 Patient denied any complaints of chest pain or shortness of breath. Patient is able to pass gas and no bowel movement yet. No fever no chills. Otherwise denied any leg pain. No nausea vomiting or abdominal pain. All other review of systems negative except the above Current medications reviewed Active Medications Acetaminophen (Tylenol Tab) 650 mg PO Q6HR PRN PRN Reason: Fever and/ or Pain Last Admin: 09/08/17 23:49 Dose: 650 mg Hydrocodone Bitart/Acetaminophen ([place] 5-325) 1 each PO Q4HR PRN PRN Reason: Pain Scale 6 to 7 Last Admin: 09/07/17 15:52 Dose: 1 each Hydrocodone Bitart/Acetaminophen ([place] 5-325) 2 each PO Q4HR PRN PRN Reason: Pain Scale 8 to 10 Al Hydroxide/Mg Hydroxide (Maalox) 30 ml PO Q4HR PRN PRN Reason: Indigestion Aspirin (Aspirin) 325 mg PO DAILY [facility] Last Admin: 09/10/17 08:12 Dose: 325 mg Atorvastatin Calcium (Lipitor) 80 mg PO HS [facility] Last Admin: 09/09/17 21:42 Dose: 80 mg Clopidogrel Bisulfate (Plavix) 75 mg PO DAILY [facility] Last Admin: 09/10/17 08:12 Dose: 75 mg Docusate Sodium (Colace) 100 mg PO DAILY [facility] Last Admin: 09/10/17 08:12 Dose: 100 mg Gabapentin (Neurontin) 800 mg PO TID [facility] Last Admin: 09/10/17 15:18 Dose: 800 mg Heparin Sodium (Porcine) (Heparin) 5,000 unit SQ Q8HR [facility] Last Admin: 09/10/17 08:13 Dose: 5,000 unit Sodium Chloride (Saline 0.9%) 1,000 mls @ 75 mls/hr IV .[id number] [facility] Last Admin: 09/10/17 11:05 Dose: Not Given Insulin Aspart (Novolog) 0 unit SQ ACHS [facility] PRN Reason: Protocol Last Admin: 09/10/17 11:42 Dose: Not Given Insulin Detemir (Levemir) 11 unit SQ Q12H [facility] Last Admin: 09/10/17 08:12 Dose: 11 unit Latanoprost (Xalatan 0.005%) 1 drops [facility] Last Admin: 09/09/17 21:42 Dose: 1 drops Lisinopril (Zestril) 5 mg PO [facility] Last Admin: 09/09/17 21:43 Dose: Not Given Lisinopril (Zestril) 10 mg PO [facility] Last Admin: 09/10/17 08:12 Dose: 10 mg Metoprolol Tartrate (Lopressor) 25 mg PO BID [facility] Last Admin: 09/10/17 08:12 Dose: 25 mg Morphine Sulfate (Morphine Sulfate (Inj)) 2 mg IVP Q4HR PRN PRN Reason: Breakthrough Pain Ondansetron HCl (Zofran) 4 mg IVP Q6HR PRN PRN Reason: Nausea And Vomiting Pantoprazole Sodium (Protonix) 40 mg PO AC-BRKFST [facility] Last Admin: 09/10/17 06:26 Dose: 40 mg Sertraline HCl (Zoloft) 100 mg PO [facility] Last Admin: 09/10/17 08:13 Dose: 100 mg Zolpidem Tartrate (Ambien) 5 mg PO PRN PRN Reason: sleep Objective - Vital Signs Vital signs: Vital Signs Temp 98.7 F 09/09/17 14:53 Pulse 61 09/09/17 14:53 Resp 14 09/09/17 14:53 BP 105/62 09/09/17 14:53 Pulse Ox 99 09/09/17 14:53 Intake & Output 09/08/17 09/09/17 09/09/17 18:59 06:59 18:59 Intake Total 1010 555 795 Output Total 121 1800 100 Balance 889 -1245 695 Weight 76.5 kg Intake: IV 390 75 375 Pressure Bag - Sodium 15 375 Chloride 0.9% Sodium Chloride 0.9% 1, 375 75 000 ml @ 75 mls/hr IV . [id number] [facility] Rx#:[id number] Oral 620 480 420 Output: Gastric Drainage 50 Urine 71 1800 100 Other: Voiding Method Indwelling Catheter Indwelling Catheter Indwelling Catheter # Voids 1 400 ABP, PAP, CO, CI - Last Documented Arterial Blood Pressure 134/53 - Exam PHYSICAL EXAMINATION: Patient is lying in the bed comfortably, no acute distress, awake alert and oriented.. HEENT: Normocephalic. Neck is supple. Pupils reactive. Nostrils clear. Oral cavity is moist. Ears reveal no drainage. Neck reveals no JVD, carotid bruits, or thyromegaly. CHEST EXAMINATION: Trachea is central. Symmetrical expansion. Lung esparza clear to auscultation and percussion. CARDIAC: Normal S1, S2 with no gallops. No murmurs ABDOMEN: Soft. Bowel sounds normal. No organomegaly. No abdominal bruits. Dressing in the left groin and minimal abdominal tenderness. Extremities: reveal no edema. No clubbing or cyanosis Neurologically awake, alert, oriented x3 with well-coordinated movements. No focal deficits noted Skin: No rash or skin lesions. Psychiatric: Coperative. Nonsuicidal Musculoskeletal: No joint swelling or deformity. Normal range of motion. - Labs CBC & Chem 7: 09/10/17 08:22 09/10/17 08:22 Labs: Abnormal Lab Results - Last 24 Hours (Table) 09/08/17 09/08/17 09/09/17 Range/Units 17:29 21:03 06:01 RBC (3.80-5.40) m/uL Hgb (11.4-16.0) gm/dL Hct (34.0-46.0) % Neutrophils # (1.3-7.7) k/uL Chloride (98-107) mmol/L Creatinine (0.52-1.04) mg/dL Glucose (74-99) mg/dL POC Glucose (mg/dL) 141 H 114 H 62 L (75-99) mg/dL Calcium (8.4-10.2) mg/dL 09/09/17 09/09/17 09/09/17 Range/Units 06:54 06:54 11:18 RBC 2.58 L (3.80-5.40) m/uL Hgb 8.0 L (11.4-16.0) gm/dL Hct 24.2 L (34.0-46.0) % Neutrophils # 8.0 H (1.3-7.7) k/uL Chloride 108 H (98-107) mmol/L Creatinine 0.47 L (0.52-1.04) mg/dL Glucose 113 H (74-99) mg/dL POC Glucose (mg/dL) 74 L (75-99) mg/dL Calcium 7.9 L (8.4-10.2) mg/dL Assessment and Plan Assessment: Status post aortofemoral bypass and right common femoral artery endarterectomy History of CVA with right arm weakness Hyperlipidemia Hypertension Diabetes type 2 insulin-dependent next and GERD Depression Chronic fibroelastoma, of the aortic valve outflow tract Coronary artery disease with stent in the left anterior descending artery Hypoalbuminemia Plan: Patient will be continued on current medications and continue with the stool softeners and pain management and bowel regimen. Aspirin and Plavix. Heparin subcu for DVT prophylaxis. Continue with the home medications and further recommendations based on the clinical course. Time with Patient: Greater than 30
--- NOTE | 2017-09-10 17:01 | P.PN ---
Subjective Progress Note Date: 09/10/17 Principal diagnosis: Javid post aortofemoral bypass graft Patient is a 51-year-old female with a known history of hypertension, hyperlipidemia and diabetes type 2 was admitted to the hospital for IV aortofemoral bypass graft due to peripheral vascular disease and claudication. 09/09/2017 Patient denied any complaints of chest pain or shortness of breath. Patient is able to pass gas and no bowel movement yet. No fever no chills. Otherwise denied any leg pain. No nausea vomiting or abdominal pain. 09/10/2017 Patient was seen and examined. Patient did have bowel movement and denied any complains of abdominal pain. No acute overnight issues. Otherwise patient is being discharged home today. We'll continue the discharge medication reconciliation. All other review of systems negative except the above Current medications reviewed Active Medications Acetaminophen (Tylenol Tab) 650 mg PO Q6HR PRN PRN Reason: Fever and/ or Pain Last Admin: 09/08/17 23:49 Dose: 650 mg Hydrocodone Bitart/Acetaminophen ([place] 5-325) 1 each PO Q4HR PRN PRN Reason: Pain Scale 6 to 7 Last Admin: 09/07/17 15:52 Dose: 1 each Hydrocodone Bitart/Acetaminophen ([place] 5-325) 2 each PO Q4HR PRN PRN Reason: Pain Scale 8 to 10 Al Hydroxide/Mg Hydroxide (Maalox) 30 ml PO Q4HR PRN PRN Reason: Indigestion Aspirin (Aspirin) 325 mg PO DAILY [facility] Last Admin: 09/10/17 08:12 Dose: 325 mg Atorvastatin Calcium (Lipitor) 80 mg PO HS [facility] Last Admin: 09/09/17 21:42 Dose: 80 mg Clopidogrel Bisulfate (Plavix) 75 mg PO DAILY [facility] Last Admin: 09/10/17 08:12 Dose: 75 mg Docusate Sodium (Colace) 100 mg PO DAILY [facility] Last Admin: 09/10/17 08:12 Dose: 100 mg Gabapentin (Neurontin) 800 mg PO TID [facility] Last Admin: 09/10/17 15:18 Dose: 800 mg Heparin Sodium (Porcine) (Heparin) 5,000 unit SQ Q8HR [facility] Last Admin: 09/10/17 08:13 Dose: 5,000 unit Sodium Chloride (Saline 0.9%) 1,000 mls @ 75 mls/hr IV .[id number] [facility] Last Admin: 09/10/17 11:05 Dose: Not Given Insulin Aspart (Novolog) 0 unit SQ ACHS [facility] PRN Reason: Protocol Last Admin: 09/10/17 11:42 Dose: Not Given Insulin Detemir (Levemir) 11 unit SQ Q12H [facility] Last Admin: 09/10/17 08:12 Dose: 11 unit Latanoprost (Xalatan 0.005%) 1 drops [facility] Last Admin: 09/09/17 21:42 Dose: 1 drops Lisinopril (Zestril) 5 mg PO HS [facility] Last Admin: 09/09/17 21:43 Dose: Not Given Lisinopril (Zestril) 10 mg PO QAM [facility] Last Admin: 09/10/17 08:12 Dose: 10 mg Metoprolol Tartrate (Lopressor) 25 mg PO BID [facility] Last Admin: 09/10/17 08:12 Dose: 25 mg Morphine Sulfate (Morphine Sulfate (Inj)) 2 mg IVP Q4HR PRN PRN Reason: Breakthrough Pain Ondansetron HCl (Zofran) 4 mg IVP Q6HR PRN PRN Reason: Nausea And Vomiting Pantoprazole Sodium (Protonix) 40 mg PO AC-BRKFST [facility] Last Admin: 09/10/17 06:26 Dose: 40 mg Sertraline HCl (Zoloft) 100 mg PO [facility] Last Admin: 09/10/17 08:13 Dose: 100 mg Zolpidem Tartrate (Ambien) 5 mg PO HS PRN PRN Reason: sleep Objective - Vital Signs Vital signs: Vital Signs Temp 98.2 F 09/10/17 15:16 Pulse 69 09/10/17 15:49 Resp 16 09/10/17 15:16 BP 110/59 09/10/17 15:16 Pulse Ox 97 09/10/17 15:16 Intake & Output 09/09/17 09/10/17 09/10/17 18:59 06:59 18:59 Intake Total 795 1410 580 Output Total 100 2100 Balance 695 -690 580 Weight 71.8 kg Intake: IV 375 750 Pressure Bag - Sodium 375 Chloride 0.9% Sodium Chloride 0.9% 1, 750 000 ml @ 75 mls/hr IV . [id number] [facility] Rx#:[id number] Oral 420 660 580 Output: Urine 100 2100 Other: Voiding Method Toilet Toilet # Voids 400 1 1 ABP, PAP, CO, CI - Last Documented Arterial Blood Pressure 134/53 - Exam PHYSICAL EXAMINATION: Patient is lying in the bed comfortably, no acute distress, awake alert and oriented.. HEENT: Normocephalic. Neck is supple. Pupils reactive. Nostrils clear. Oral cavity is moist. Ears reveal no drainage. Neck reveals no JVD, carotid bruits, or thyromegaly. CHEST EXAMINATION: Trachea is central. Symmetrical expansion. Lung esparza clear to auscultation and percussion. CARDIAC: Normal S1, S2 with no gallops. No murmurs ABDOMEN: Soft. Bowel sounds normal. No organomegaly. No abdominal bruits. Dressing in the left groin and minimal abdominal tenderness. Extremities: reveal no edema. No clubbing or cyanosis Neurologically awake, alert, oriented x3 with well-coordinated movements. No focal deficits noted Skin: No rash or skin lesions. Psychiatric: Coperative. Nonsuicidal Musculoskeletal: No joint swelling or deformity. Normal range of motion. - Labs CBC & Chem 7: 09/10/17 08:22 09/10/17 08:22 Labs: Abnormal Lab Results - Last 24 Hours (Table) 09/09/17 09/09/17 09/10/17 Range/Units 16:42 20:53 08:22 RBC 2.34 L (3.80-5.40) m/uL Hgb 7.5 L (11.4-16.0) gm/dL Hct 21.9 L (34.0-46.0) % BUN (7-17) mg/dL Creatinine (0.52-1.04) mg/dL Glucose (74-99) mg/dL POC Glucose (mg/dL) 117 H 140 H (75-99) mg/dL Calcium (8.4-10.2) mg/dL Total Protein (6.3-8.2) g/dL Albumin (3.5-5.0) g/dL 09/10/17 Range/Units 08:22 RBC (3.80-5.40) m/uL Hgb (11.4-16.0) gm/dL Hct (34.0-46.0) % BUN 5 L (7-17) mg/dL Creatinine 0.50 L (0.52-1.04) mg/dL Glucose 131 H (74-99) mg/dL POC Glucose (mg/dL) (75-99) mg/dL Calcium 8.0 L (8.4-10.2) mg/dL Total Protein 4.5 L (6.3-8.2) g/dL Albumin 2.4 L (3.5-5.0) g/dL Assessment and Plan Assessment: Status post aortofemoral bypass and right common femoral artery endarterectomy History of CVA with right arm weakness Hyperlipidemia Hypertension Diabetes type 2 insulin-dependent next and GERD Depression Chronic fibroelastoma, of the aortic valve outflow tract Coronary artery disease with stent in the left anterior descending artery Hypoalbuminemia Plan: Patient will be continued on current medications and continue with the stool softeners and pain management and bowel regimen. Aspirin and Plavix. Heparin subcu for DVT prophylaxis. Continue with the home medications and further recommendations based on the clinical course. Time with Patient: Greater than 30
== END 2017-09-10 17:04 | disposition home or self-care (01) | DRG 272 ==
LOC: 2ORMAIN 05:42 → 6ICU 12:00 → 6SEL 09-08 11:56
PROVIDERS: ADMIT Surgery; ATTEND Surgery
PROC: 04CL0ZZ Extirpation of Matter from Left Femoral Artery, Open Approach (ICD-10-PCS; 2017-09-06)
PROC: 04CK0ZZ Extirpation of Matter from Right Femoral Artery, Open Approach (ICD-10-PCS; 2017-09-06)
PROC: 04100JK Bypass Abdominal Aorta to Bilateral Femoral Arteries with Synthetic Substitute, Open Approach (ICD-10-PCS; principal; 2017-09-06 07:30)
DX: I74.09 Other arterial embolism and thrombosis of abdominal aorta (principal); E11.51 Type 2 diabetes mellitus with diabetic peripheral angiopathy without gangrene; D15.1 Benign neoplasm of heart; E78.5 Hyperlipidemia, unspecified; I10 Essential (primary) hypertension; K21.9 Gastro-esophageal reflux disease without esophagitis; F32.9 Major depressive disorder, single episode, unspecified; I25.10 Atherosclerotic heart disease of native coronary artery without angina pectoris; F41.9 Anxiety disorder, unspecified; R33.9 Retention of urine, unspecified; Z95.5 Presence of coronary angioplasty implant and graft; Z87.891 Personal history of nicotine dependence; I69.331 Monoplegia of upper limb following cerebral infarction affecting right dominant side; Z98.51 Tubal ligation status; Z90.49 Acquired absence of other specified parts of digestive tract; Z79.899 Other long term (current) drug therapy; Z79.02 Long term (current) use of antithrombotics/antiplatelets; Z79.4 Long term (current) use of insulin; Z79.891 Long term (current) use of opiate analgesic; Z79.82 Long term (current) use of aspirin; Z82.49 Family history of ischemic heart disease and other diseases of the circulatory system; I25.2 Old myocardial infarction
CPT/HCPCS: 36415; 80048; 80051; 80053; 81003; 82565; 82947; 83036; 83735; 84100; 84520; 85025; 86850; 86891; 86900; 86901; 88304; 88311; 93005

== ENCOUNTER → 2017-12-28 | Outpatient (CLI) | payer MEDICARE, OTHER ==
--- NOTE | 2017-12-29 10:12 | MM ---
Reason for exam: screening (asymptomatic). Last mammogram was performed 5 years and 5 months ago. History: Family history of premenopausal breast cancer in maternal aunt. Benign US LT VAD breast biopsy of the left breast, December 23, 2011. Physical Findings: A clinical breast exam by your physician is recommended on an annual basis and results should be correlated with mammographic findings. MG 3D Screening Mammo W/Cad Bilateral CC and MLO view(s) were taken. Prior study comparison: August 01, 2012, left diagnostic mammogram w/CAD. December 13, 2011, bilateral digital screening mammo w/CAD. The breast tissue is heterogeneously dense. This may lower the sensitivity of mammography. Finding: There are intermediate concern, suspicious, fine, grouped/clustered calcifications in the upper outer quadrant of the right breast 10cm from the nipple. New finding since August 01, 2012. ASSESSMENT: Incomplete: need additional imaging evaluation, BI-RAD 0 RECOMMENDATION: Special view mammogram of the right breast. [facility] will attempt to contact patient to return for supplemental views.
== END | disposition home or self-care (01) ==
LOC: RADMAMWWP 15:31
PROVIDERS: ATTEND Family Medicine
DX: Z12.31 Encounter for screening mammogram for malignant neoplasm of breast (principal)
CPT/HCPCS: 77063; 77067

== ENCOUNTER → 2018-01-31 | Outpatient (CLI) | payer MEDICARE, OTHER ==
--- NOTE | 2018-01-31 11:35 | MM ---
Reason for exam: additional evaluation requested from abnormal screening. Last mammogram was performed 1 month ago. History: Family history of premenopausal breast cancer in maternal aunt. Benign US LT VAD breast biopsy of the left breast, December 23, 2011. Physical Findings: Nurse did not find any significant physical abnormalities on exam. MG 3D Work Up W/Cad RT Spot compression CC, spot compression ML, and ML view(s) were taken of the right breast. Prior study comparison: December 28, 2017, bilateral MG 3d screening mammo w/cad. August 01, 2012, left diagnostic mammogram w/CAD. The breast tissue is heterogeneously dense. This may lower the sensitivity of mammography. These results were verbally communicated with the patient and result sheet given to the patient on 01/31/18. ASSESSMENT: Probably benign, BI-RAD 3 RECOMMENDATION: Follow-up diagnostic mammogram of the right breast in 6 months. magnification views
[2018-01-31 12:34] LABS: Anisocytosis Slight; Basophils # (A) 0.1 k/uL (0-0.2); Basophils % (A) 1 %; Eosinophils # (A) 0.2 k/uL (0-0.7); Eosinophils % (A) 2 %; HCT 33.3 % (34.0-46.0); HGB 10.6 gm/dL (11.4-16.0); Lymphocytes # (A) 2.6 k/uL (1.0-4.8); Lymphocytes % (A) 24 %; MCH 27.6 pg (25.0-35.0); MCHC 31.9 g/dL (31.0-37.0); MCV 86.7 fL (80.0-100.0); Mean Platelet Volume 7.2; Monocytes # (A) 0.5 k/uL (0-1.0); Monocytes % (A) 5 %; Neutrophils # (A) 7.5 k/uL (1.3-7.7); Neutrophils % (A) 68 %; Platelet Count 240 k/uL (150-450); RBC 3.84 m/uL (3.80-5.40); RDW 17.3 % (11.5-15.5)
[2018-01-31 12:37] LABS: ALT 25 U/L (9-52); AST 15 U/L (14-36); Albumin 4.2 g/dL (3.5-5.0); Alkaline Phosphatase 60 U/L (38-126); Anion Gap 10 mmol/L; Blood Urea Nitrogen 20 mg/dL (7-17); Calcium 9.6 mg/dL (8.4-10.2); Carbon Dioxide 26 mmol/L (22-30); Chloride 105 mmol/L (98-107); Glucose 67 mg/dL (74-99); Potassium 5.3 mmol/L (3.5-5.1); Sodium 141 mmol/L (137-145); Total Bilirubin 0.2 mg/dL (0.2-1.3); Total Protein 6.8 g/dL (6.3-8.2)
[2018-01-31 20:15] LABS: Hemoglobin A1C 5.8 % (4.0-6.0)
== END | disposition home or self-care (01) ==
LOC: RADMAMWWP 10:16
PROVIDERS: ATTEND Family Medicine
DX: R92.8 Other abnormal and inconclusive findings on diagnostic imaging of breast (principal); E11.9 Type 2 diabetes mellitus without complications
CPT/HCPCS: 80053; 85025; 83036; 77065; 36415; G0279; 77061

== ENCOUNTER 2018-10-01 16:21 | Observation (INO) | payer MEDICARE, OTHER ==
[2018-10-01 16:28] VITALS: TEMP 97.8
[2018-10-01] MEDS ORDERED: ONDANSETRON 4 MG/2 ML VIAL IVP STA (18:09)
[2018-10-01] MEDS ORDERED: SODIUM CHLORIDE 0.9% 1,000 ML IV ONE ×2 (18:09)
--- NOTE | 2018-10-01 18:50 | ED ---
Fall HPI - General Chief Complaint: Fall Stated Complaint: lt sided weakness Time Seen by Provider: 10/01/18 17:33 Source: patient, RN notes reviewed, old records reviewed Mode of arrival: wheelchair - History of Present Illness Initial Comments: 52-year-old female presents today with multiple falls from "Black out" episodes within the past 2 days. She complains of some chest pain on activity the past 2 days. Patient states that she's had a history of strokes and heart attacks. She sees Dr. Magallon for history of strokes, and sees cardiology. - Related Data Home Medications Medication Instructions Recorded Confirmed Gabapentin [Neurontin] 800 mg PO TID 12/17/13 10/01/18 INSULIN LISPRO (humaLOG) [humaLOG] 4 units SQ AC-SUPPER 12/17/13 10/01/18 Lisinopril [Zestril] 5 mg PO HS 12/17/13 10/01/18 Latanoprost Ophth [Xalatan 0.005%] 1 drops BOTH EYES HS 08/11/14 10/01/18 Sertraline [Zoloft] 100 mg PO QAM 07/31/15 10/01/18 Atorvastatin Calcium [Lipitor] 80 mg PO HS 03/14/17 10/01/18 Lisinopril [Zestril] 10 mg PO QAM 05/05/17 10/01/18 Zolpidem [Ambien] 5 mg PO HS PRN 09/05/17 10/01/18 Insulin Glargine,Hum.rec.anlog 18 unit SQ HS 10/01/18 10/01/18 [Alverto Mendes] metFORMIN HCL 1,000 mg PO BID 10/01/18 10/01/18 Previous Rx's Medication Instructions Recorded Aspirin 325 mg PO DAILY #30 tab 08/03/15 Clopidogrel [Plavix] 75 mg PO DAILY #30 tab 08/03/15 Metoprolol Tartrate [Lopressor] 25 mg PO BID #60 tab 08/03/15 Allergies Allergy/AdvReac Type Severity Reaction Status Date / Time No Known Allergies Allergy Verified 10/01/18 18:23 Review of Systems ROS Statement: Those systems with pertinent positive or pertinent negative responses have been documented in the HPI. ROS Other: All systems not noted in ROS Statement are negative. Past Medical History Past Medical History: CVA/TIA, [place] Infarction ([place]) Additional Past Medical History / Comment(s): Fibroelastoma of the aortic valve, DDD, GLAUCOMA ,NEUROPATHY bilateral legs and feet. Last Myocardial Infarction Date:: 2011 History of Any Multi-Drug Resistant Organisms: None Reported Past Surgical History: Cholecystectomy, Heart Catheterization With Stent, Tubal Ligation Additional Past Surgical History / Comment(s): PTCA with stent LAD 11/20/11, NERI, ovarian cyst Past Anesthesia/Blood Transfusion Reactions: No Reported Reaction Additional Past Anesthesia/Blood Transfusion Reaction / Comment(s): no hx blood transfusion Date of Last Stent Placement:: 2015 Past Psychological History: Anxiety, Depression Smoking Status: Former smoker Past Alcohol Use History: None Reported Past Drug Use History: None Reported - Past Family History Father History Unknown: Yes Family Medical History: Unable to Obtain Mother Family Medical History: Diabetes Mellitus, Myocardial Infarction ([place]) Additional Family Medical History / Comment(s): Mother at age 55 yrs of unknown cause. General Exam - General Exam Comments Initial Comments: Well-appearing 52-year-old female. No distress. Limitations: no limitations General appearance: alert, in no apparent distress Head exam: Present: atraumatic, normocephalic, normal inspection Eye exam: Present: normal appearance, PERRL, EOMI. Absent: scleral icterus, conjunctival injection, periorbital swelling ENT exam: Present: normal exam, mucous membranes moist Neck exam: Present: normal inspection. Absent: tenderness, meningismus, lymphadenopathy Respiratory exam: Present: normal lung sounds bilaterally. Absent: respiratory distress, wheezes, rales, rhonchi, stridor Cardiovascular Exam: Present: regular rate, normal rhythm, normal heart sounds. Absent: systolic murmur, diastolic murmur, rubs, gallop, clicks GI/Abdominal exam: Present: soft, normal bowel sounds. Absent: distended, tenderness, guarding, rebound, rigid Extremities exam: Present: normal inspection, full ROM, normal capillary refill. Absent: tenderness, pedal edema, joint swelling, calf tenderness Back exam: Present: normal inspection Neurological exam: Present: alert, oriented X3, CN II-XII intact Psychiatric exam: Present: normal affect, normal mood Skin exam: Present: warm, dry, intact, normal color. Absent: rash Course Vital Signs 10/01/18 16:25 Temperature 97.8 F Pulse Rate 60 Respiratory 18 Rate Blood Pressure 105/70 O2 Sat by Pulse 99 Oximetry Medical Decision Making - Medical Decision Making This is a 52-year-old female who presents the emergency department today with complaints of blacking out episodes and falling for the past 2 days. Patient has bruising over her right hip. Patient states she's been improving. She complains of some near syncopal episodes while in ER. She is given IV fluids labwork obtained. Lab work was negative for any acute process. Patient chest x-ray and CT of her brain are negative for any acute disease. There is evidence of previous encephalomalacia noted in the frontal lobe. Patient will be admitted at this time with consult to cardiology for syncopal episodes and her reported chest pain. - Lab Data Result diagrams: 10/01/18 18:50 10/01/18 18:50 Lab Results 10/01/18 10/01/18 10/01/18 Range/Units 18:50 18:50 18:50 WBC 10.6 (3.8-10.6) k/uL RBC 4.28 (3.80-5.40) m/uL Hgb 14.1 (11.4-16.0) gm/dL Hct 40.9 (34.0-46.0) % MCV 95.5 (80.0-100.0) fL MCH 32.9 (25.0-35.0) pg MCHC 34.5 (31.0-37.0) g/dL RDW 13.5 (11.5-15.5) % Plt Count 244 (150-450) k/uL Neutrophils % 63 % Lymphocytes % 27 % Monocytes % 4 % Eosinophils % 4 % Basophils % 1 % Neutrophils # 6.6 (1.3-7.7) k/uL Lymphocytes # 2.8 (1.0-4.8) k/uL Monocytes # 0.5 (0-1.0) k/uL Eosinophils # 0.4 (0-0.7) k/uL Basophils # 0.1 (0-0.2) k/uL PT 10.0 (9.0-12.0) sec INR 0.9 (<1.2) APTT 23.1 (22.0-30.0) sec Sodium 136 L (137-145) mmol/L Potassium 3.8 (3.5-5.1) mmol/L Chloride 98 (98-107) mmol/L Carbon Dioxide 26 (22-30) mmol/L Anion Gap 12 mmol/L BUN 31 H (7-17) mg/dL Creatinine 1.06 H (0.52-1.04) mg/dL Est GFR (CKD-EPI)AfAm 71 (>60 ml/min/1.73 sqM) Est GFR (CKD-EPI)NonAf 62 (>60 ml/min/1.73 sqM) Glucose 92 (74-99) mg/dL Calcium 9.9 (8.4-10.2) mg/dL Total Bilirubin 0.7 (0.2-1.3) mg/dL AST 20 (14-36) U/L ALT 26 (9-52) U/L Alkaline Phosphatase 82 (38-126) U/L Troponin I (0.000-0.034) ng/mL Total Protein 7.8 (6.3-8.2) g/dL Albumin 4.9 (3.5-5.0) g/dL 10/01/18 Range/Units 18:50 WBC (3.8-10.6) k/uL RBC (3.80-5.40) m/uL Hgb (11.4-16.0) gm/dL Hct (34.0-46.0) % MCV (80.0-100.0) fL MCH (25.0-35.0) pg MCHC (31.0-37.0) g/dL RDW (11.5-15.5) % Plt Count (150-450) k/uL Neutrophils % % Lymphocytes % % Monocytes % % Eosinophils % % Basophils % % Neutrophils # (1.3-7.7) k/uL Lymphocytes # (1.0-4.8) k/uL Monocytes # (0-1.0) k/uL Eosinophils # (0-0.7) k/uL Basophils # (0-0.2) k/uL PT (9.0-12.0) sec INR (<1.2) APTT (22.0-30.0) sec Sodium (137-145) mmol/L Potassium (3.5-5.1) mmol/L Chloride (98-107) mmol/L Carbon Dioxide (22-30) mmol/L Anion Gap mmol/L BUN (7-17) mg/dL Creatinine (0.52-1.04) mg/dL Est GFR (CKD-EPI)AfAm (>60 ml/min/1.73 sqM) Est GFR (CKD-EPI)NonAf (>60 ml/min/1.73 sqM) Glucose (74-99) mg/dL Calcium (8.4-10.2) mg/dL Total Bilirubin (0.2-1.3) mg/dL AST (14-36) U/L ALT (9-52) U/L Alkaline Phosphatase (38-126) U/L Troponin I <0.012 (0.000-0.034) ng/mL Total Protein (6.3-8.2) g/dL Albumin (3.5-5.0) g/dL 10/01/18 19:22 EKG shows sinus bradycardia, septal infarct age undetermined. Ventricular rate of 54 bpm. AL interval is 140 ms. QS duration 80 ms. QT QTc is 454/4:30 milliseconds. - Radiology Data Radiology results: report reviewed CT of the brain is negative for any acute process. The anterior left frontal lobe encephalomalacia redemonstrated. His x-rays negative for any acute process. Disposition Clinical Impression: Syncope, Chest pain, HTN (hypertension), History of smoking Disposition: ADMITTED IP TO THIS [facility] Referrals: Daniel Bailey MD [Primary Care Provider] - 1-2 days
[2018-10-01 19:03] LABS: Basophils # (A) 0.1 k/uL (0-0.2); Basophils % (A) 1 %; Eosinophils # (A) 0.4 k/uL (0-0.7); Eosinophils % (A) 4 %; HCT 40.9 % (34.0-46.0); HGB 14.1 gm/dL (11.4-16.0); Lymphocytes # (A) 2.8 k/uL (1.0-4.8); Lymphocytes % (A) 27 %; MCH 32.9 pg (25.0-35.0); MCHC 34.5 g/dL (31.0-37.0); MCV 95.5 fL (80.0-100.0); Mean Platelet Volume 7.9; Monocytes # (A) 0.5 k/uL (0-1.0); Monocytes % (A) 4 %; Neutrophils # (A) 6.6 k/uL (1.3-7.7); Neutrophils % (A) 63 %; Platelet Count 244 k/uL (150-450); RBC 4.28 m/uL (3.80-5.40); RDW 13.5 % (11.5-15.5); WBC 10.6 k/uL (3.8-10.6)
[2018-10-01 19:13] LABS: INR 0.9 (<1.2); Partial Thromboplastin Time 23.1 sec (22.0-30.0)
[2018-10-01 19:16] LABS: Albumin 4.9 g/dL (3.5-5.0); Calcium 9.9 mg/dL (8.4-10.2); Potassium 3.8 mmol/L (3.5-5.1); Total Bilirubin 0.7 mg/dL (0.2-1.3); Total Protein 7.8 g/dL (6.3-8.2)
--- NOTE | 2018-10-01 19:18 | CT ---
EXAMINATION: CT brain wo con DATE AND TIME: 10/01/2018 6:56 PM CLINICAL INDICATION: [facility]; falls TECHNIQUE: Standard departmental protocol.; ; COMPARISON: CT [birth year]/21/1947 FINDINGS: There is no intracranial hemorrhage. There is no intracranial mass or mass effect. No defin ite new intra-axial defect. The previously seen left anterior frontal encephalomalacia is redemonstra ganseh, similar in appearance. The calvarium is intact. The paranasal sinuses, middle ear cavities, and mastoid sinus air cells are clear. The orbits are unremarkable. IMPRESSION: 1. NO ACUTE PROCESS. 2. Anterior left frontal lobe encephalomalacia redemonstrated.
--- NOTE | 2018-10-01 19:24 | XR ---
EXAMINATION: XR chest 2V DATE AND TIME: 10/01/2018 6:40 PM CLINICAL INDICATION: [facility]; falls TECHNIQUE: Departmental protocol COMPARISON: None FINDINGS: The lungs are clear. The pleural spaces are negative. The cardiac silhouette is not enlarged. Left coronary stent noted. The remainder of the mediastinal s ilhouette is unremarkable. The skeletal structures and soft tissues are negative for acute findings. IMPRESSION: NO ACUTE PROCESS.
[2018-10-01 20:47] LABS: Amorphous Sediment,Urine Rare /hpf; Appearance,Urine Cloudy (Clear); Bacteria,Urine Few /hpf; Bilirubin,Urine Negative (Negative); Blood,Urine Negative (Negative); Color,Urine Yellow; Glucose,Urine (UA) Negative (Negative); Hyaline Casts,Urine 129 /lpf (0-2); Ketones,Urine Negative (Negative); Leukocyte Esterase,Urine Moderate (Negative); Mucus,Urine Rare /hpf; Nitrite,Urine Negative (Negative); PH, Urine 5.5 (5.0-8.0); Protein,Urine Trace (Negative); RBC,Urine 1 /hpf (0-5); Specific Gravity,Urine 1.016 (1.001-1.035); Squamous Epithelial Cell,Urine 21 /hpf (0-4); Urobilinogen,Urine <2.0 mg/dL (<2.0); WBC,Urine 10 /hpf (0-5)
[2018-10-01] MEDS ORDERED: NITROGLYCERIN SL TABS 0.4 MG TAB SUBLINGUAL PRN (20:58)
[2018-10-01 21:06] VITALS: RESP 16
[2018-10-01 22:19] VITALS: BP 109/66; PULSE 68
--- NOTE | 2018-10-01 22:42 | ED ---
Medical Decision Making - Medical Decision Making 52 female the ER for evaluation. Patient has a for evaluation regards to weakness. Worsening weakness worsening weakness leading to increasing falls. Exacerbation of prior CVA. The weaknesses began increasing her falls and has been progressing for 2 days. No other complaints. Patient be needed to be transferred for neurological evaluation and monitoring spoke with [facility] regarding transfer, they're agreeable to transfer - Lab Data Result diagrams: 10/01/18 18:50 10/01/18 18:50 Lab Results 10/01/18 10/01/18 10/01/18 Range/Units 18:50 18:50 18:50 WBC 10.6 (3.8-10.6) k/uL RBC 4.28 (3.80-5.40) m/uL Hgb 14.1 (11.4-16.0) gm/dL Hct 40.9 (34.0-46.0) % MCV 95.5 (80.0-100.0) fL MCH 32.9 (25.0-35.0) pg MCHC 34.5 (31.0-37.0) g/dL RDW 13.5 (11.5-15.5) % Plt Count 244 (150-450) k/uL Neutrophils % 63 % Lymphocytes % 27 % Monocytes % 4 % Eosinophils % 4 % Basophils % 1 % Neutrophils # 6.6 (1.3-7.7) k/uL Lymphocytes # 2.8 (1.0-4.8) k/uL Monocytes # 0.5 (0-1.0) k/uL Eosinophils # 0.4 (0-0.7) k/uL Basophils # 0.1 (0-0.2) k/uL PT 10.0 (9.0-12.0) sec INR 0.9 (<1.2) APTT 23.1 (22.0-30.0) sec Sodium 136 L (137-145) mmol/L Potassium 3.8 (3.5-5.1) mmol/L Chloride 98 (98-107) mmol/L Carbon Dioxide 26 (22-30) mmol/L Anion Gap 12 mmol/L BUN 31 H (7-17) mg/dL Creatinine 1.06 H (0.52-1.04) mg/dL Est GFR (CKD-EPI)AfAm 71 (>60 ml/min/1.73 sqM) Est GFR (CKD-EPI)NonAf 62 (>60 ml/min/1.73 sqM) Glucose 92 (74-99) mg/dL Calcium 9.9 (8.4-10.2) mg/dL Total Bilirubin 0.7 (0.2-1.3) mg/dL AST 20 (14-36) U/L ALT 26 (9-52) U/L Alkaline Phosphatase 82 (38-126) U/L Troponin I (0.000-0.034) ng/mL Total Protein 7.8 (6.3-8.2) g/dL Albumin 4.9 (3.5-5.0) g/dL Urine Color Urine Appearance (Clear) Urine pH (5.0-8.0) Ur Specific [place] (1.001-1.035) Urine Protein (Negative) Urine Glucose (UA) (Negative) Urine Ketones (Negative) Urine Blood (Negative) Urine Nitrite (Negative) Urine Bilirubin (Negative) Urine Urobilinogen (<2.0) mg/dL Ur Leukocyte Esterase (Negative) Urine RBC (0-5) /hpf Urine WBC (0-5) /hpf Ur Squamous Epith Cells (0-4) /hpf Amorphous Sediment (None) /hpf Urine Bacteria (None) /hpf Hyaline Casts (0-2) /lpf Urine Mucus (None) /hpf 10/01/18 10/01/18 Range/Units 18:50 20:05 WBC (3.8-10.6) k/uL RBC (3.80-5.40) m/uL Hgb (11.4-16.0) gm/dL Hct (34.0-46.0) % MCV (80.0-100.0) fL MCH (25.0-35.0) pg MCHC (31.0-37.0) g/dL RDW (11.5-15.5) % Plt Count (150-450) k/uL Neutrophils % % Lymphocytes % % Monocytes % % Eosinophils % % Basophils % % Neutrophils # (1.3-7.7) k/uL Lymphocytes # (1.0-4.8) k/uL Monocytes # (0-1.0) k/uL Eosinophils # (0-0.7) k/uL Basophils # (0-0.2) k/uL PT (9.0-12.0) sec INR (<1.2) APTT (22.0-30.0) sec Sodium (137-145) mmol/L Potassium (3.5-5.1) mmol/L Chloride (98-107) mmol/L Carbon Dioxide (22-30) mmol/L Anion Gap mmol/L BUN (7-17) mg/dL Creatinine (0.52-1.04) mg/dL Est GFR (CKD-EPI)AfAm (>60 ml/min/1.73 sqM) Est GFR (CKD-EPI)NonAf (>60 ml/min/1.73 sqM) Glucose (74-99) mg/dL Calcium (8.4-10.2) mg/dL Total Bilirubin (0.2-1.3) mg/dL AST (14-36) U/L ALT (9-52) U/L Alkaline Phosphatase (38-126) U/L Troponin I <0.012 (0.000-0.034) ng/mL Total Protein (6.3-8.2) g/dL Albumin (3.5-5.0) g/dL Urine Color Yellow Urine Appearance Cloudy H (Clear) Urine pH 5.5 (5.0-8.0) Ur Specific [place] 1.016 (1.001-1.035) Urine Protein Trace H (Negative) Urine Glucose (UA) Negative (Negative) Urine Ketones Negative (Negative) Urine Blood Negative (Negative) Urine Nitrite Negative (Negative) Urine Bilirubin Negative (Negative) Urine Urobilinogen <2.0 (<2.0) mg/dL Ur Leukocyte Esterase Moderate H (Negative) Urine RBC 1 (0-5) /hpf Urine WBC 10 H (0-5) /hpf Ur Squamous Epith Cells 21 H (0-4) /hpf Amorphous Sediment Rare H (None) /hpf Urine Bacteria Few H (None) /hpf Hyaline Casts 129 H (0-2) /lpf Urine Mucus Rare H (None) /hpf Disposition Clinical Impression: Syncope, Chest pain, HTN (hypertension), History of smoking, CVA (cerebral infarction) Disposition: OTHER INSTITUTION NOT DEFINED Condition: Fair Is patient prescribed a controlled substance at d/c from ED?: No - Out of Hospital Transfer - Req. Specs Out of Hospital Transfer - Requested Specifics: Other Emergency Center ([facility])
[2018-10-02 01:59] LABS: Cholesterol 158 mg/dL (<200); HDL Cholesterol 44 mg/dL (40-60); LDL Cholesterol,Calculated 79 mg/dL (0-99); Triglycerides 173 mg/dL (<150)
[2018-10-02] MEDS ORDERED: ASPIRIN 325 MG TAB PO SCH (09:00)
== END 2018-10-01 22:00 | disposition critical access hospital (66) ==
LOC: EC 16:21 → 1SOBS 20:13
PROVIDERS: ADMIT Hospitalist; ATTEND Hospitalist
DX: R55 Syncope and collapse (principal); R07.9 Chest pain, unspecified; R53.1 Weakness; R29.6 Repeated falls; I10 Essential (primary) hypertension; G93.89 Other specified disorders of brain; I25.2 Old myocardial infarction; H40.9 Unspecified glaucoma; G62.9 Polyneuropathy, unspecified; D15.1 Benign neoplasm of heart; F41.9 Anxiety disorder, unspecified; F32.9 Major depressive disorder, single episode, unspecified; Z87.891 Personal history of nicotine dependence; Z86.73 Personal history of transient ischemic attack (TIA), and cerebral infarction without residual deficits; Z79.899 Other long term (current) drug therapy; Z79.4 Long term (current) use of insulin; Z90.49 Acquired absence of other specified parts of digestive tract; Z95.5 Presence of coronary angioplasty implant and graft; Z82.49 Family history of ischemic heart disease and other diseases of the circulatory system; Z83.3 Family history of diabetes mellitus
CPT/HCPCS: 96360; 96361; 99285; 36415; 93005; 80061; 80053; 84484; 85025; 85610; 85730; 81001; 71046; 70450; G0378

== ENCOUNTER → 2018-12-14 | Outpatient (CLI) | payer MEDICARE, OTHER ==
[2018-12-14 17:00] LABS: HCT 33.5 % (34.0-46.0); HGB 11.6 gm/dL (11.4-16.0); MCH 32.7 pg (25.0-35.0); MCHC 34.6 g/dL (31.0-37.0); MCV 94.5 fL (80.0-100.0); Mean Platelet Volume 7.5; Platelet Count 308 k/uL (150-450); RBC 3.55 m/uL (3.80-5.40); RDW 13.1 % (11.5-15.5); WBC 8.6 k/uL (3.8-10.6)
[2018-12-14 17:15] LABS: Anion Gap 8 mmol/L; Blood Urea Nitrogen 14 mg/dL (7-17); Carbon Dioxide 27 mmol/L (22-30); Chloride 105 mmol/L (98-107); Potassium 4.7 mmol/L (3.5-5.1); Sodium 140 mmol/L (137-145)
== END ==
LOC: LABPAT 16:46
PROVIDERS: ATTEND Internal Medicine Interventional Cardiology
DX: Z01.812 Encounter for preprocedural laboratory examination (principal); I25.10 Atherosclerotic heart disease of native coronary artery without angina pectoris
CPT/HCPCS: 80051; 82565; 84520; 85027

== ENCOUNTER 2018-12-20 06:33 | Day surgery (SDC) | payer MEDICARE, OTHER ==
[2018-12-17 11:31] VITALS: BMI 24.0
[2018-12-20] MEDS ORDERED: ALPRAZolam 0.5 MG TAB PO PRN (07:01)
[2018-12-20] MEDS ORDERED: NITROGLYCERIN SL TABS 0.4 MG TAB SUBLINGUAL PRN (07:01)
[2018-12-20] MEDS ORDERED: SODIUM CHLORIDE 0.9% 1,000 ML in EMPTY BAG 1 BAG IV ONE (07:01)
[2018-12-20] MEDS ORDERED: ATORVASTATIN 80 MG TAB PO STA (07:01)
[2018-12-20] MEDS ORDERED: ASPIRIN 325 MG TAB PO STA (07:01)
[2018-12-20] MEDS ORDERED: ALPRAZolam 0.25 MG TAB PO PRN (07:01)
[2018-12-20 07:24] VITALS: PULSE 52; TEMP 98
[2018-12-20 07:27] LABS: Glucose,Whole Blood 156 mg/dL (75-99)
[2018-12-20] MEDS ORDERED: MIDAZOLAM (PF) 2 MG/2 ML VIAL IVP ONE (08:10)
[2018-12-20] MEDS ORDERED: LIDOCAINE 1% INJ 10MG/ML (20 ML MDV) SQ ONE (08:11)
[2018-12-20] MEDS ORDERED: IOPAMIDOL-370 125ML BTL INJ ONE (08:30)
[2018-12-20] MEDS ORDERED: RX INFO: IV CONTRAST WAS GIVEN 1 EACH MISC MISCELLANE PRN (08:36)
[2018-12-20] MEDS ORDERED: SODIUM CHLORIDE 0.9% 1,000 ML IV SCH (08:45)
--- NOTE | 2018-12-20 09:07 | LTR ---
December 20, 2018 Re: Holly Jose Dear Dr. Bailey: Ms. Holly Garcia underwent today a heart catheterization and that revealed patent stent in the mid left anterior descending artery. I want to thank you for allowing me to participate in her care and please do not hesitate to call if you have any question or concern. Sincerely, Leroy Pearl MD MMALYSSA / FREDERIC: [id number] /
--- NOTE | 2018-12-20 09:22 | CC ---
CARDIAC CATHETERIZATION REPORT DATE OF SERVICE: December 20, 2018 PERFORMING PHYSICIAN: Leroy Pearl MD, survey researcher. PROCEDURE PERFORMED: 1. Selective right and left coronary angiogram. 2. Left heart catheterization. INDICATION: This is a 53-year-old female patient with known history of coronary artery disease and prior stenting of the proximal and mid LAD as well as peripheral arterial disease and prior aortobifem bypass as well as multiple comorbidities including prior history of smoking, was experiencing symptoms of chest discomfort and she underwent myocardial perfusion imaging stress test and that revealed an anterior ischemia. Because of that, heart catheterization was advised. APPROACH: Right common femoral artery. COMPLICATION: None. LEVEL OF SEDATION: Moderate with sedation length of 26 minutes. PROCEDURE DESCRIPTION: After obtaining an informed consent, the patient was brought to the cardiac woods laborer. The right common femoral artery was cannulated using micropuncture technique, the micropuncture wire passed easily then I placed a 6-Azeri sheath in the right common femoral artery. I did selective right and left coronary angiogram using JR4 and JL4 catheters. Left heart catheterization was performed using 6-Azeri pigtail catheter. The procedure was completed without any complication. SELECTIVE CORONARY ANGIOGRAM: 1. The right coronary artery is a medium caliber vessel and it is a nondominant vessel and appeared to be angiographically normal. 2. The left main is angiographically normal. It bifurcates into the left circumflex and left anterior descending artery as well as ramus intermedius. 3. The left circumflex is a large caliber vessel. It is a dominant vessel and appeared to be angiographically normal. Distally it bifurcates into PDA and PLV branches both appeared to be angiographically normal. 4. The ramus intermedius is a large caliber vessel and seems to be angiographically normal. 5. The LAD: The proximal LAD appeared to have mild disease only in the range of 20% to 30%. The mid LAD is stented on the long segment and the stent seems to be patent. The proximal to mid LAD gives rise into a small sized diagonal branch which has an ostial lesion appeared to be in the range of 80% to 90%. The LAD in the very distal portion appeared to be angiographically normal. HEMODYNAMICS: The left ventricular end-diastolic pressure was about 20 mmHg without significant gradient across the aortic valve. CONCLUSION: 1. Mild disease involving the proximal left anterior descending artery. Patent stents in the mid LAD. There was a tight lesion involving the ostial of the small diagonal branch in the proximal to mid LAD. 2. Elevated left ventricular end-diastolic pressure. POSTPROCEDURE MANAGEMENT: 1. Maximize medical treatment. 2. Risk factors modifications. 3. Follow up with the patient. RITO / FREDERIC: [id number] /
[2018-12-20 12:44] LABS: Glucose,Whole Blood 128 mg/dL (75-99)
[2018-12-20 17:13] VITALS: BP 147/69; RESP 18
== END 2018-12-20 16:20 | disposition home or self-care (01) ==
LOC: CATHCVL 06:33
PROVIDERS: ATTEND Internal Medicine Interventional Cardiology
DX: I25.10 Atherosclerotic heart disease of native coronary artery without angina pectoris (principal); I10 Essential (primary) hypertension; Z72.0 Tobacco use; E78.5 Hyperlipidemia, unspecified; E11.51 Type 2 diabetes mellitus with diabetic peripheral angiopathy without gangrene; E78.00 Pure hypercholesterolemia, unspecified; Z82.49 Family history of ischemic heart disease and other diseases of the circulatory system; Z86.73 Personal history of transient ischemic attack (TIA), and cerebral infarction without residual deficits; Z95.5 Presence of coronary angioplasty implant and graft; Z95.828 Presence of other vascular implants and grafts; I77.9 Disorder of arteries and arterioles, unspecified; Z87.891 Personal history of nicotine dependence; Z79.02 Long term (current) use of antithrombotics/antiplatelets; Z79.82 Long term (current) use of aspirin; Z79.4 Long term (current) use of insulin; Z79.899 Other long term (current) drug therapy
CPT/HCPCS: 93458; 81025; C1769 ×4; C1894 ×2; J2001; Q9967; J2250